=== PATIENT | male | born 1935 | race Caucasian/White ===

== ENCOUNTER 2017-03-22 18:54 | Inpatient (IN) ==
[2017-03-22] MEDS ORDERED: DIPH/TET/ACEL PERT BOOSTER VACCINE 0.5 ML VIAL IM ONE ×2 (20:28→21:00)
--- NOTE | 2017-03-22 20:50 | XRay Report ---
Right foot, 3 views. Indication: Possible osteomyelitis. Surgical clips are noted in the medial aspect of the lower leg. There is an area of ulceration at the great toe. There is loss of cortex at the distal tuft of the great toe suggestive of active osteomyelitis. There are degenerative changes present, severe, at the first metatarsophalangeal joint, and there is a interval but not acute fracture of the base of the third proximal phalanx. There is nonunion. There are prominent erosions at the head of the third and fourth metatarsals. There are posterior and plantar calcaneal spurs. Impression: Bony erosion at the distal tuft of the great toe, consistent with active osteomyelitis. Scattered degenerative changes. Interval nonacute fracture of the third proximal phalanx. PROCEDURE INTERPRETED AT [facility] DEPARTMENT OF RADIOLOGY Final Report Signed by: Dr. Malou Yun
[2017-03-22] MEDS ORDERED: PIPERACILLIN/TAZOBACTAM 3,375 MG in SODIUM CHLORIDE 0.9% 100 ML IV STA (21:12)
[2017-03-22] MEDS ORDERED: VANCOMYCIN INJ 1,000 MG in SODIUM CHLORIDE 0.9% 250 ML IV STA (21:13)
[2017-03-22 21:19] LABS: Apearance,Urine Slightly Hazy (Clear); Bilirubin,Urine Negative (Negative); Blood, Urine Negative (Negative); Glucose,Urine (UA) Negative (Negative); Granular Casts,Urine 5 /LPF (0-1); Hyaline Casts,Urine 27 /LPF (0-3); Ketones,Urine 5 mg/dL (Negative); Mucus,Urine Occasional /LPF (Occasional); Nitrite,Urine Negative (Negative); Protein,Urine Negative; Urine Color Yellow (Yellow); Urine Specific Gravity 1.011 (1.001-1.035); Urine Urobilinogen < 2.0 EU/DL (0.2-1.0); WBC,Urine <1 /HPF (0-6)
[2017-03-22] MEDS ORDERED: PIPERACILLIN/TAZOBACTAM 3,375 MG VIAL IV ONE (21:42)
[2017-03-22 21:43] LABS: Albumin 3.3 G/DL (3.4-5.0); Osmolality,Calculated 277.7 MOS/KG (273-304); Potassium 3.7 MMOL/L (3.5-5.1); Total Protein 7.4 G/DL (6.4-8.3)
[2017-03-22] MEDS ORDERED: SODIUM CHLORIDE 0.9% 100 ML IV ONE (21:43)
--- NOTE | 2017-03-22 21:59 | Emergency Department Note ---
Arrival - Arrival Chief Complaint: Extremity Problem Stated Complaint: pain in feet ED Nursing Triage Note: C/O Wound to great toe and 2nd toe on right foot x 2-3 weeks. Pt denies seeking medical attention until tonight. Unsure of fever at home. Pt reports that he was once told he was a diabetic, but then he was taken off of medications because "it got better" Mode of Arrival: Ambulatory Time Seen by Provider: 03/22/17 19:37 - History of Present Illness HPI Narrative: This is a 81-year-old male of descent with a history of coronary artery disease, hypertension and diabetes which the patient says he no longer takes medication for who presents with increasing pain involving the right first toe. The patient was admitted in 2013 with amputation of the left second toe for osteomyelitis. The patient denies any fever nor chills. Allergies/Adverse Reactions: Allergies Allergy/AdvReac Type Severity Reaction Status Date / Time No Known Allergies Allergy Unverified 03/27/16 22:01 Home Medications: Home Medications Medication Instructions Recorded Confirmed Type Aspirin [Ecotrin] 81 mg PO DAILY 03/27/16 03/22/17 History Atorvastatin [Lipitor] 40 mg PO BEDTIME 03/27/16 03/22/17 History Carvedilol 3.125 mg PO DAILY 03/27/16 03/22/17 History HydrOXYzine PAMOATE CAP [Vistaril 25 mg PO BID 03/27/16 03/22/17 History Cap] Review of System - Review of System Constitutional: Absent: fever, night sweats Eyes: Absent: redness, vision change Head/Ears/Nose/Throat: Absent: epistaxis, nasal drainage Respiratory: Absent: respiratory distress, wheezing Cardiovascular: Absent: dyspnea on exertion, orthopnea Gastrointestinal: Absent: diarrhea, constipation, melena Genitourinary male: Absent: urgency, dysuria Musculoskeletal: Present: other (Pain of the right first toe) Skin: Absent: change in color, change in hair/nails Neurological: Absent: numbness, paresthesias Psychiatric: Absent: anxiety, depression Endocrine: Absent: heat intolerance, polydipsia, polyuria Hematological/Lymphatic: Absent: easy bruising, lymphadenopathy Allergic/Immunologic: Absent: urticaria, itchy eyes Medical,Surgical,& Family Hx - Medical History Cardio: History of: Hypertension Endocrine: History of: Dyslipidemia - Surgical History Cardiac Surgeries: Sugical HX of: Cardiac Surgery (CABG 1999) - Family History Family History: Reports;: Family Hypertension - Social History Smoking Status: Never smoker Frequency of Alcohol Use: None Type of Drug Use: None Exam Vital Signs: Vital Signs Temperature 98.5 F 03/22/17 19:50 Pulse Rate 75 03/22/17 22:43 Respiratory Rate 16 03/22/17 22:43 Blood Pressure 111/72 03/22/17 22:43 O2 Sat by Pulse Oximetry 98 03/22/17 22:43 - General General appearance: alert - Eye Eye exam: Present: PERRL, EOMI - ENT ENT exam: Present: normal exam - Neck Neck exam: Present: normal inspection, full ROM - Chest Chest inspection: Present: normal inspection - Respiratory Respiratory exam: Present: normal lung sounds bilaterally - Cardiovascular Cardiovascular exam: Present: regular rate, normal rhythm - Abdominal Exam Abdominal exam: Present: soft, normal bowel sounds - Extremities Exam Extremities exam: Present: other (Swelling redness tenderness of the right first toe with ulceration.) - Back Exam Back exam: Present: normal inspection, full ROM - Neurological Exam Neurological exam: Present: alert, oriented X3 - Psychiatric Psychiatric exam: Present: normal affect, normal mood - Skin Skin exam: Present: warm, dry Results - Labs CBC & BMP: 03/22/17 20:21 03/22/17 20:54 Disposition Clinical Impression: Diabetic foot, Osteomyelitis
[2017-03-22 22:13] LABS: Basophils % 0.2 % (0.0-0.8); Eosinophils % 0.1 % (0.00-10.9); Hematocrit 42.6 VOL% (42.0-52.0); Hemoglobin 14.5 GM/DL (14.0-18.0); Immature Granulocytes % 0.6 %; Immature Granulocytes Absolute 0.07 #; Lymphocytes # 1.5 10*3/uL (1.4-4.0); Mean Corpuscular Hemoglobin 30 PG (27-34); Mean Corpuscular Volume 87.7 FL (87-102); Mean Platelet Volume 12.3 FL (9.6-12.0); Monocytes # 1.7 10*3/uL (0.11-0.8); Monocytes % 14.4 % (1.7-12.7); Neutrophils # 8.3 10*3/uL (1.4-7.4); Neutrophils % 71.7 % (38.7-73.9); Platelet Count 172 T/CUMM (130-400); Red Blood Count 4.86 MC/CUMM (3.8-5.5); White Blood Count 11.6 T/CUMM (4-12)
[2017-03-22] MEDS ORDERED: VANCOMYCIN 1,000 MG VIAL ONE (22:18)
[2017-03-22] MEDS ORDERED: ACETAMINOPHEN 325 MG TABLET PO PRN (22:59)
[2017-03-22] MEDS ORDERED: ONDANSETRON 4 MG/2 ML VIAL IV PRN (22:59)
[2017-03-23] MEDS ORDERED: GLUCAGON 1 MG VIAL IM PRN (05:51)
[2017-03-23] MEDS ORDERED: DEXTROSE 50% 25 GM/50 ML SYRINGE IV PRN (05:51)
--- NOTE | 2017-03-23 05:58 | Family Practice History&Phys ---
Assessment and Plan (1) Diabetic foot Status: Acute Assessment and plan: 03/23/2017: Hemoglobin A1c will be checked. Surgical consultation will be ordered. Current Visit: Yes (2) Osteomyelitis Status: Acute Assessment and plan: 03/23/2017: Surgical consultation will be sought. Wound culture will be ordered. Current Visit: Yes History of Present Illness Chief complaint: Foot pain History of present illness: Mr. Mahan is a 81 year old male Patient 81-year-old white male presented emergency room with right great toe pain and ulceration. Patient does have a history of diabetes and has had previous amputations. Patient states it started looking infected about 3 weeks ago and he delayed coming to the emergency room until looks like debridement and possible amputation is necessary. Patient states he stopped taking his diabetic medicines because he did not need it but that was his decision and not mine. Patient states she has had a little fever with this but no chills. He denies any trauma to the area and has a large ulceration and necrotic changes on tip of his right great toe. He denies any other problems. I have not seen the patient in the office in some time now. Home Medications Medication Instructions Recorded Confirmed Type Aspirin [Ecotrin] 81 mg PO DAILY 03/27/16 03/22/17 History Atorvastatin [Lipitor] 40 mg PO BEDTIME 03/27/16 03/22/17 History Carvedilol 3.125 mg PO DAILY 03/27/16 03/22/17 History HydrOXYzine PAMOATE CAP [Vistaril 25 mg PO BID 03/27/16 03/22/17 History Cap] Allergies Allergy/AdvReac Type Severity Reaction Status Date / Time No Known Allergies Allergy Unverified 03/27/16 22:01 - Constitutional Constitutional: Present: fever(s). Absent: chills, weakness - EENT Eyes: Absent: blurry vision, loss of vision Ears: Absent: decreased hearing, ear pain Nose, mouth and throat: Absent: nasal congestion, sinus pressure, sore throat - Cardiovascular Cardiovascular: Absent: chest pain at rest, dyspnea on exertion, edema - Respiratory Respiratory: Absent: cough, dyspnea, dyspnea on exertion - Gastrointestinal Gastrointestinal: Absent: abdominal pain, diarrhea, melena, nausea, vomiting - Genitourinary Genitourinary: Absent: dysuria, urinary frequency - Musculoskeletal Musculoskeletal: Present: as per HPI - Neurological Neurological: Absent: confusion, focal weakness, numbness, paresthesias - Psychiatric Psychiatric: Absent: anxiety, confusion - Endocrine Endocrine: Absent: fatigue, polydipsia, polyphagia - Hematologic/Lymphatic Hematologic/Lymphatic: Absent: easy bleeding, easy bruising Medical,Surgical,& Family Hx - Medical History Cardio: History of: Hypertension Endocrine: History of: Diabetes Mellitus (NIDDM), Dyslipidemia - Surgical History Cardiac Surgeries: Sugical HX of: Cardiac Surgery (CABG 1999) HEENT Surgeries: Surgical HX of: Eye Surgery (cataract removal) - Family History Family History: Reports;: Family Hypertension - Social History Smoking Status: Never smoker Frequency of Alcohol Use: None Type of Drug Use: None Exam - Constitutional Vitals: Period Temp Pulse Resp BP Sys/Silverio Pulse Ox Last 24 Hr 97.3 F-98.5 F 64-84 16-20 111-149/68-82 97-100 Exam: General: Objective patient is a well-developed white male in no acute distress. Patient is able give good history. HEENT: Pupils equal and reactive to light. Patent nares and airway Neck: No meningismus, adenopathy, thyromegaly. There are no auscultated carotid bruits. Cardiovascular: Regular rhythm. No murmurs or gallops Chest: Clear to auscultation without rales rhonchi wheezes. Abdomen: Soft nontender to palpation No masses, rebound, guarding or tenderness. Neuro: Cranial nerves intact and DTRs and strength symmetric in all extremities. Dermatologic: Patient has ulceration and necrosis of the tip of his right great toe. He also has ulceration to the plantar surface of the left foot. He has had previous toe amputations on the left foot. Musculoskeletal: There is no joint swelling or tenderness or deformity. Extremities: No calf swelling or tenderness. Results - Labs CBC & BMP: 03/22/17 20:21 03/22/17 20:54 Lab Results: I have reviewed the past 24 hour labs - Diagnostic Findings Procedure: X-ray: report reviewed by me (Questionable changes of osteomyelitis to the distal phalanx of the right great toe.) Quality Measures - VTE Contraindication to Pharmacological VTE Prophylaxis: High Risk of Bleeding
[2017-03-23] MEDS: INSULIN LISPRO 100 UNIT/ML SUBCUT SCH ×4 (08:26→20:34)
[2017-03-23] MEDS: CEFTAROLINE 400 MG in SODIUM CHLORIDE 0.9% 100 ML IV SCH ×2 (08:27→22:21)
[2017-03-23] MEDS: PANTOPRAZOLE 40 MG TABLET PO SCH (08:27)
[2017-03-23] MEDS: DOCUSATE SODIUM 100 MG CAPSULE PO SCH ×2 (08:27→20:34)
--- NOTE | 2017-03-23 08:46 | General Surgery Consult Note ---
Assessment and Plan - Time spent with patient Time spent with patient: Less than 30 minutes (1) Diabetic foot Status: Acute Assessment and plan: Impression: Diabetic foot ulcer right great toe with ischemic changes Plan: Surgical debridement possible partial amputation Agree with present antibiotics. We will check some vascular studies to be sure that we have pretty good circulatory status. Current Visit: Yes (2) Osteomyelitis Status: Acute Assessment and plan: Impression: Possible osteomyelitis of the right great toe. Plan: Debridement and cultures. Current Visit: Yes Qualifiers: Osteomyelitis location: foot Laterality: right (3) Diabetes mellitus, insulin dependent (IDDM), controlled Status: Acute Assessment and plan: Impression: Diabetes mellitus under pretty good control at this time do not know what can control he has outside the hospital. Plan: Medical management A1c pending Current Visit: Yes (4) History of heart surgery Status: Acute Assessment and plan: Impression: History of cardiac surgery Current Visit: Yes History of Present Illness Chief complaint: Painful ulceration of the right great toe with ischemic change History of present illness: Mr. Mahan is a 81 year old male white diabetic who we were asked to see because of necrotic ulceration of the right great toe with some cellulitis. Onset of changes in that toe was about 3 weeks ago but he did not seek help until he came to emergency room was found to have almost 2/3 of the great toe with ischemic tissue present questionable osteo-on these x-rays plain films of the toe. He seems to have pretty good pulses dorsalis pedis on that right foot but will get some vascular studies can understand what we are dealing with. He will need debridement which will probably result in at least partial amputation of that toe or to get this process under control. May initially need to leave the wound open for drainage and wound care until we can come back and close at another date. Also found that he has got ulcerations on the left foot that need to be debrided and cleaned up also with some consistent care in order to try to get this process under control. When I had seen the patient had already had breakfast so we will set him up for surgery tomorrow. Home Medications Medication Instructions Recorded Confirmed Type Aspirin [Ecotrin] 81 mg PO DAILY 03/27/16 03/22/17 History Atorvastatin [Lipitor] 40 mg PO BEDTIME 03/27/16 03/22/17 History Carvedilol 3.125 mg PO DAILY 03/27/16 03/22/17 History HydrOXYzine PAMOATE CAP [Vistaril 25 mg PO BID 03/27/16 03/22/17 History Cap] Allergies Allergy/AdvReac Type Severity Reaction Status Date / Time No Known Allergies Allergy Unverified 03/27/16 22:01 Medical,Surgical,& Family Hx - Medical History Cardio: History of: Hypertension Endocrine: History of: Diabetes Mellitus (NIDDM), Dyslipidemia - Surgical History Cardiac Surgeries: Sugical HX of: Cardiac Surgery (CABG 1999) HEENT Surgeries: Surgical HX of: Eye Surgery (cataract removal) - Family History Family History: Reports;: Family Hypertension - Social History Smoking Status: Never smoker Frequency of Alcohol Use: None Type of Drug Use: None 12 point system: reviewed and no additional remarkable complaints except as stated Exam - Constitutional Vitals: Period Temp Pulse Resp BP Sys/Silverio Pulse Ox Last 24 Hr 97.3 F-98.5 F 63-84 16-20 111-149/68-82 96-100 General appearance: mild distress - Head Head exam: Present: normal inspection - ENT ENT exam: Present: normal exam Mouth exam: Present: normal external inspection - Neck Neck exam: Present: normal inspection - Respiratory Respiratory exam: Present: clear to auscultation bilaterally, rales - Cardiovascular Cardiovascular exam: Present: RRR - GI/Abdominal GI/Abdominal exam: Present: normal bowel sounds, soft - Extremities Exam Extremities exam: Present: other (The right foot has a toe with extensive ischemic changes of the distal two thirds of the toe with some erythematous changes on the dorsum of the foot. There is a 2+ dorsalis palpable pulse in the foot at this time. The left foot has a ulcer on the plantar surface and the metatarsal head area that is dark and black thickened callus around it and do not know the extensiveness of it at this point.). Absent: edema - Back Exam Back exam: Present: normal inspection - Neurological Exam Neurological exam: Present: alert, oriented X3, CN II-XII intact - Skin Skin exam: Present: normal color, warm, dry Quality Measures - VTE Contraindication to Pharmacological VTE Prophylaxis: Clinical assessment deems Pt at low risk, no prophalaxis needed Contraindication to Mechanical VTE Prophylaxis: Local Inflammation Results - Labs CBC & BMP: 03/22/17 20:21 03/22/17 20:54 Lab Results: I have reviewed the past 24 hour labs
[2017-03-23] MEDS: ENOXAPARIN 40 MG/0.4 ML SYRINGE SUBCUT SCH (09:55)
[2017-03-23] MEDS: PENTOXIFYLLINE 400 MG TABLET PO SCH ×3 (09:55→20:34)
[2017-03-23] MEDS: SKIN HEALING OINT (AQUAPHOR) 50 GM TUBE TOP SCH (09:55)
[2017-03-23] MEDS: BACITRACIN OINT 0.9 GM PACK TOP SCH (09:55)
--- NOTE | 2017-03-23 10:49 | EKG Report ---
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
--- NOTE | 2017-03-23 12:21 | XRay Report ---
Exam: XR chest 2V Indication: Preop Comparison study: 04/20/2014 Findings: The heart, mediastinum and bony structures are stable from prior. Median sternotomy wiring is noted. Right-sided PICC line has been removed. There is improved aeration within the lung bases. There is no focal consolidation, pneumothorax or pleural effusion identified. Impression: No acute cardiopulmonary process. Improved aeration within the lung bases. PROCEDURE INTERPRETED AT [facility] DEPARTMENT OF RADIOLOGY Final Report Signed by: Adolfo Flores
[2017-03-23] MEDS: CARVEDILOL 3.125 MG TABLET PO SCH ×2 (16:32→20:34)
[2017-03-23] MEDS: amLODIPine 2.5 MG TABLET PO SCH (16:32)
[2017-03-24 05:59] LABS: Basophils % 0.2 % (0.0-0.8); Eosinophils # 0.2 10*3/uL (0.0-0.87); Eosinophils % 2.2 % (0.00-10.9); Hematocrit 41.3 VOL% (42.0-52.0); Hemoglobin 13.9 GM/DL (14.0-18.0); Immature Granulocytes % 0.6 %; Immature Granulocytes Absolute 0.06 #; Lymphocytes # 1.5 10*3/uL (1.4-4.0); Lymphocytes % 15.2 % (21.2-54.2); Mean Corpuscular HGB Conc 33.7 GM/DL (32-36); Mean Corpuscular Hemoglobin 29 PG (27-34); Mean Corpuscular Volume 87.1 FL (87-102); Monocytes # 1.3 10*3/uL (0.11-0.8); Monocytes % 13.5 % (1.7-12.7); Neutrophils # 6.7 10*3/uL (1.4-7.4); Neutrophils % 68.3 % (38.7-73.9); Platelet Count 164 T/CUMM (130-400); Red Blood Count 4.74 MC/CUMM (3.8-5.5); Red Cell Distribution Width 12.8 % (9.3-17.3); White Blood Count 9.8 T/CUMM (4-12)
[2017-03-24 06:42] LABS: Calcium 8.6 MG/DL (8.5-10.1); Magnesium 2.2 MG/DL (1.8-2.4); Osmolality,Calculated 281.3 MOS/KG (273-304); Potassium 3.8 MMOL/L (3.5-5.1)
[2017-03-24] MEDS ORDERED: ceFAZolin 2,000 MG in SODIUM CHLORIDE 0.9% 100 ML IV ONE (07:00)
[2017-03-24] MEDS ORDERED: BUPIVACAINE 0.25% 50 ML VIAL ONE (07:22)
[2017-03-24] MEDS: INSULIN LISPRO 100 UNIT/ML SUBCUT SCH ×4 (07:49→21:33)
[2017-03-24] MEDS ORDERED: MUPIROCIN 2% OINT 22 GM TUBE TOP ONE (07:53)
[2017-03-24] MEDS ORDERED: CHLORHEXIDINE 4% SOLN 118 ML BOTTLE TOP ONE (08:05)
--- NOTE | 2017-03-24 08:18 | Operative Note ---
Date of procedure: 03/24/17 Pre-op diagnosis: Diabetic ulceration right great toe with osteomyelitis/ulcer left foot Post-op diagnosis: same Procedure: Operative note: Preoperative diagnosis: 1. Diabetic ulceration right great toe with ischemic changes and underlying osteomyelitis 2. Diabetic ulceration plantar surface left foot fourth metatarsal head 3. Callus first metatarsal head medial left foot Postoperative diagnosis: Same Procedure: 1. Distal amputation of the phalanges of the right great toe with extensive debridement of the distal first toe ulcer 2. Debridement of ulcer plantar surface left foot fourth metatarsal 3. Debridement of callus medial aspect first metatarsal head left foot Surgeon Dr. Jenkins Anesthesia general Brief history: 81-year-old diabetic male comes in with ischemic changes of the distal part of his right great toe with swelling and underlying x-rays of osteomyelitis. Needed debridement and better culturing of this know what we are dealing with at this time. He also has a another ulcer on the left foot plantar surface area that needs some debridement because a thick callus is present over this ulcer she cannot really see what we are dealing with. Procedure: With patient prepped and draped in sterile fashion timeout and antibiotics completed we approach this area the wounds themselves. Their distal part of the first toe is a large callus over it is difficult to really measure and tell exactly how extensive the necrotic tissue is at this time. The left foot ulcer on the plantar surface at the fourth metatarsal area with thick callus measures 2 x 1.5 cm x 0 cm. The left foot and undersurface callus first metatarsal head measures 1 x 1 cm x 0 cm. At that point I went ahead over to the right first toe. At that point time I took scissors and to begin to remove the thick callus over the distal part of this wound. There is some purulent drainage we then cultured with swabs at this time. At that point I can get little better look at what we are dealing with and there is a ulcer on the very tip of the toe at this point with necrotic tissue around the edges of it at this time. I took a knife and ellipsed this necrotic tissue around the toe completely out at this time to remove that including the mid nailbed that was present at this time. I then dissected down into this area around the bone where there was clearly exposed bone with osteomyelitis in it at this time. The spongy and easily audible. I took a piece of the distal part of the bone for cultures at this time. I then used periosteal elevators and get down to the joint tourniquet disarticulate the distal phalanges of this toe. Once it was removed I took the rondure removed additional necrotic bone from the medial edge as well as some deep tendinous material. I then debrided the cartilage away from the end of the bone at this time to get a good clean base at this time. I then took a knife and debride a little more the posterior flap area just clean this age up in order to get this is clean as I could possibly get it. Once that was done we now have a wound that is 2.5 x 2 x 1 cm in size. I washed irrigated and cleaned this out this time. I removed little bit of callus from the second toe that may have a small little ulcer there but I do not think is insignificant at this point. With that completed then we were able to dress this is bacitracin Xeroform fluffs heel pad and wrapped with cast padding Covan to the knee. Next moved to the left foot where there is an ulcer at the plantar surface at this time. Pre-debridement the ulcer has a thick callus since 2 x 1.5 x 0 cm in size. At that point time I took a knife begin to shave that callus down and away encountering an ulcer underneath the wound is not as big as the actual callused area. I debrided all this callus down to this ulcer that has a good smooth flat granulating beds at this time. No infection or drainage was noted. Once I had finished and now have an ulcer on this area with the callus gone that is only 1 x 1 x 0.1 cm in size. With that completed in this little callused area on the medial aspect first metatarsal head of this left foot took a knife to debride that callus down finding no ulcer underneath it at this time. With that I then worked up this leg placed some bacitracin ointment Xeroform and fluffs on to this ulcer and then wrapped the leg up with cast padding Covan to the knee. Patient was then taken to recovery room in Estimated blood loss was 10-15 cc Sponge count correct 2 Drains none Complications none Condition stable satisfactory Anesthesia: ANGELA Surgeon / Physician: Rd Jenkins Estimated blood loss: other (10 cc) Specimens: other (Tissue and swabs and bone for culture and path) Condition: stable Disposition: floor Results - Labs CBC & BMP: 03/24/17 05:39 03/24/17 05:39 Discharge Plan - Discharge Medications No Action HydrOXYzine PAMOATE CAP [Vistaril Cap] 25 mg PO BID Atorvastatin [Lipitor] 40 mg PO BEDTIME Carvedilol 3.125 mg PO DAILY Aspirin [Ecotrin] 81 mg PO DAILY - Follow Up or Referral - Forms/Instructions
[2017-03-24] MEDS ORDERED: HYDROmorphone 2 MG/1 ML VIAL IV PRN (08:27)
[2017-03-24] MEDS ORDERED: ONDANSETRON 4 MG/2 ML VIAL IV PRN (08:27)
[2017-03-24] MEDS ORDERED: hydrALAZINE 20 MG/1 ML VIAL IM ONE (08:28)
[2017-03-24] MEDS ORDERED: LACTATED RINGERS 1,000 ML IV SCH (08:30)
[2017-03-24] MEDS: ASPIRIN EC 81 MG TABLET PO SCH (09:11)
[2017-03-24] MEDS: DOCUSATE SODIUM 100 MG CAPSULE PO SCH ×2 (09:12→21:27)
[2017-03-24] MEDS: CARVEDILOL 3.125 MG TABLET PO SCH ×3 (09:12→21:27)
[2017-03-24] MEDS: HydrOXYzine PAMOATE 25 MG CAPSULE PO SCH ×2 (09:12→21:27)
[2017-03-24] MEDS: amLODIPine 2.5 MG TABLET PO SCH (09:12)
[2017-03-24] MEDS: ENOXAPARIN 40 MG/0.4 ML SYRINGE SUBCUT SCH ×2 (09:12→09:28)
[2017-03-24] MEDS: PENTOXIFYLLINE 400 MG TABLET PO SCH ×3 (09:12→21:27)
[2017-03-24] MEDS: PANTOPRAZOLE 40 MG TABLET PO SCH (09:12)
--- NOTE | 2017-03-24 09:22 | Family Practice Progress Note ---
Family Practice - PN: Subj Interval history: PCP: Dr. Yan Consultants on case : Surgery, pt admitted for diabetic foot, osteomyelitis, status post surgery this a.m. Has h/o DM, HTN , hyperlipidemia pt seen and examined on 2 East floor, Accompanied by sister at bedside. Is postoperative, debridement of the ulcers/callus, right great toe/amputation phalanx of right great toe lying in bed, is hard of hearing No complaints of pain, fever , nausea, vomiting , chest pain , SOB , headaches or dizziness, No overnight events reported by the nurse, Exam (Progress Note) - Constitutional Vitals: Period Temp Pulse Resp BP Sys/Silverio Pulse Ox Last 24 Hr 97.4 F-98.7 F 50-74 16-21 122-198/52-119 62-99 Exam: Examination: GENERAL: Alert, oriented, in no acute distress , elderly male pt, Lying in the bed, HEENT: Decreased hearing,PERRLA. EOMI. Mucous membranes are moist. NECK: Neck is supple. No JVD. No carotid bruit. No thyromegaly. CVS: Regular rate and rhythm. S1 and S2 are normal. RESPIRATORY: Clear to ausculation bilaterally , No wheezes, rales or rhonchi. ABDOMEN: Soft and nontender. Bowel sounds are present. No hepatosplenomegaly. EXT: Has postoperative testing at bilateral feet/legs. No swelling/edema noted of the knee and upper legs bilaterally. BIRD RAISER: Patient is awake, alert and oriented, Cranial nerves 2-12 grossly intact. Results - Labs CBC & BMP: 03/24/17 05:39 03/24/17 05:39 Lab Results: I have reviewed the past 24 hour labs - Diagnostic Findings Procedure: Chest x-ray: report reviewed by me, image reviewed by me, X-ray: report reviewed by me, image reviewed by me Assessment and Plan (1) Osteomyelitis Status: Acute Assessment and plan: Status post debridement, right great toe distal phalanges of amputation day 0, continue IV antibiotics, pain meds, blood cultures/wound culture reports noted. Continue surgery recommendations 2. DM , stable , continue current regimen \3..HTN , stable, continue current antihypertensives, 4. Dyslipidemia, continue Lipitor Current Visit: Yes Qualifiers: Osteomyelitis location: foot Laterality: right (2) Diabetic foot Status: Acute Current Visit: Yes (3) Diabetes mellitus, insulin dependent (IDDM), controlled Status: Chronic Current Visit: Yes (4) Essential hypertension Status: Chronic Current Visit: Yes (5) Dyslipidemia Status: Chronic Current Visit: Yes Quality Measures - VTE Contraindication to Pharmacological VTE Prophylaxis: Clinical assessment deems Pt at low risk, no prophalaxis needed
[2017-03-24] MEDS: CEFTAROLINE 400 MG in SODIUM CHLORIDE 0.9% 100 ML IV SCH ×2 (10:08→21:33)
[2017-03-24] MEDS: SODIUM CHLORIDE 0.45% 1,000 ML IV SCH ×2 (10:08→22:14)
[2017-03-24] MEDS: SODIUM HYPOCHLORITE 0.25% IRRIG 473 ML BOTTLE TOP SCH (11:06)
[2017-03-24] MEDS: SKIN HEALING OINT (AQUAPHOR) 50 GM TUBE TOP SCH (11:06)
[2017-03-24] MEDS: BACITRACIN OINT 0.9 GM PACK TOP SCH (11:06)
[2017-03-24] MEDS ORDERED: ePHEDrine 50 MG/ML AMP ONE (12:44)
--- NOTE | 2017-03-24 12:50 | Anesthesia Post-Op ---
Anesthesia Post OP - Post Ansesthetic Evaluation Patient seen in post op: Yes Resp: within normal limits CV: within normal limits Mental: within normal limits Temp: within normal limits [id number]: within normal limits Nausea and Vomiting: within normal limits Pain: within normal limits
[2017-03-24] MEDS ORDERED: ACETAMINOPHEN 1,000 MG/100 ML VIAL IV ONE (12:57)
[2017-03-24] MEDS ORDERED: ONDANSETRON 4 MG/2 ML VIAL ONE (12:57)
[2017-03-24] MEDS ORDERED: PROPOFOL 200 MG/20 ML VIAL IV ONE (12:57)
[2017-03-24] MEDS ORDERED: LACTATED RINGERS 1,000 ML IV ONE (12:57)
[2017-03-24] MEDS ORDERED: SEVOFLURANE 1 UNIT/15 MINUTE INH ONE (12:57)
[2017-03-24] MEDS: HYDROmorphone 2 MG/1 ML VIAL IV PRN (15:30)
[2017-03-24] MEDS: ceFAZolin 2,000 MG in PREMIX 1 EACH IV SCH ×2 (15:35→22:14)
[2017-03-24] MEDS: ATORVASTATIN 40 MG TABLET PO SCH (21:27)
[2017-03-25 05:38] LABS: Basophils % 0.2 % (0.0-0.8); Eosinophils # 0.3 10*3/uL (0.0-0.87); Eosinophils % 4.8 % (0.00-10.9); Hematocrit 37.2 VOL% (42.0-52.0); Hemoglobin 12.7 GM/DL (14.0-18.0); Immature Granulocytes % 0.3 %; Immature Granulocytes Absolute 0.02 #; Lymphocytes # 1.6 10*3/uL (1.4-4.0); Lymphocytes % 26.9 % (21.2-54.2); Mean Corpuscular HGB Conc 34.1 GM/DL (32-36); Mean Corpuscular Hemoglobin 30 PG (27-34); Mean Corpuscular Volume 87.3 FL (87-102); Mean Platelet Volume 12.3 FL (9.6-12.0); Monocytes # 0.7 10*3/uL (0.11-0.8); Monocytes % 11.1 % (1.7-12.7); Neutrophils # 3.4 10*3/uL (1.4-7.4); Neutrophils % 56.7 % (38.7-73.9); Platelet Count 153 T/CUMM (130-400); Red Blood Count 4.26 MC/CUMM (3.8-5.5); Red Cell Distribution Width 13.2 % (9.3-17.3); White Blood Count 6.1 T/CUMM (4-12)
[2017-03-25 06:17] LABS: Calcium 8.6 MG/DL (8.5-10.1); Osmolality,Calculated 287.7 MOS/KG (273-304); Potassium 3.6 MMOL/L (3.5-5.1)
[2017-03-25] MEDS: CEFTAROLINE 400 MG in SODIUM CHLORIDE 0.9% 100 ML IV SCH ×2 (08:47→21:53)
--- NOTE | 2017-03-25 08:48 | Family Practice Progress Note ---
Family Practice - PN: Subj Interval history: PCP: Dr. Yan [facility] on case : Surgery, pt admitted for diabetic foot, osteomyelitis, status post surgery,debridement of the ulcers/callus, right great toe/amputation phalanx of right great toe Has h/o DM, HTN , hyperlipidemia pt seen and examined on 2 East floor, Accompanied by sister at bedside. lying in bed, is hard of hearing No complaints of pain, fever , nausea, vomiting , chest pain , SOB , headaches or dizziness, No overnight events reported by the nurse, Exam (Progress Note) - Constitutional Vitals: Period Temp Pulse Resp BP Sys/Silverio Pulse Ox Last 24 Hr 96.7 F-98.7 F 50-85 18-20 123-164/53-113 93-98 Exam: Examination: GENERAL: Alert, oriented, in no acute distress , elderly male pt, Lying in the bed, HEENT: Decreased hearing,PERRLA. EOMI. Mucous membranes are moist. NECK: Neck is supple. No JVD. No carotid bruit. No thyromegaly. CVS: Regular rate and rhythm. S1 and S2 are normal. RESPIRATORY: Clear to ausculation bilaterally , No wheezes, rales or rhonchi. ABDOMEN: Soft and nontender. Bowel sounds are present. No hepatosplenomegaly. EXT: Has postoperative DRESSING at bilateral feet/legs. No swelling/edema noted of the knee and upper legs bilaterally. NYLON OPERATOR: Patient is awake, alert and oriented, Cranial nerves 2-12 grossly intact. Results - Labs CBC & BMP: 03/25/17 05:05 03/25/17 05:05 Lab Results: I have reviewed the past 24 hour labs Assessment and Plan (1) Osteomyelitis Status: Acute Assessment and plan: Status post debridement, right great toe distal phalanges of amputation day 1, continue IV antibiotics, pain meds, blood cultures/wound culture reports noted. Continue surgery recommendations 2. DM , stable , continue current regimen \3..HTN , stable, continue current antihypertensives, 4. Dyslipidemia, continue Lipitor. 5. account services analyst consult done for possible placement of swing bed, when ready for discharge. Current Visit: Yes Qualifiers: Osteomyelitis location: foot Laterality: right (2) Diabetic foot Status: Acute Current Visit: Yes (3) Diabetes mellitus, insulin dependent (IDDM), controlled Status: Chronic Current Visit: Yes (4) Essential hypertension Status: Chronic Current Visit: Yes (5) Dyslipidemia Status: Chronic Current Visit: Yes Quality Measures - VTE Contraindication to Pharmacological VTE Prophylaxis: Clinical assessment deems Pt at low risk, no prophalaxis needed
[2017-03-25] MEDS: PENTOXIFYLLINE 400 MG TABLET PO SCH ×3 (08:50→20:49)
[2017-03-25] MEDS: CARVEDILOL 3.125 MG TABLET PO SCH ×3 (08:50→20:49)
[2017-03-25] MEDS: DOCUSATE SODIUM 100 MG CAPSULE PO SCH ×2 (08:50→20:49)
[2017-03-25] MEDS: amLODIPine 2.5 MG TABLET PO SCH (08:51)
[2017-03-25] MEDS: HydrOXYzine PAMOATE 25 MG CAPSULE PO SCH ×2 (08:54→20:49)
[2017-03-25] MEDS: PANTOPRAZOLE 40 MG TABLET PO SCH (08:54)
[2017-03-25] MEDS: ASPIRIN EC 81 MG TABLET PO SCH (08:55)
[2017-03-25] MEDS: INSULIN LISPRO 100 UNIT/ML SUBCUT SCH ×4 (09:44→21:10)
[2017-03-25] MEDS: ENOXAPARIN 40 MG/0.4 ML SYRINGE SUBCUT SCH (09:45)
[2017-03-25] MEDS: BACITRACIN OINT 0.9 GM PACK TOP SCH (09:59)
[2017-03-25] MEDS: SKIN HEALING OINT (AQUAPHOR) 50 GM TUBE TOP SCH (09:59)
[2017-03-25] MEDS: SODIUM HYPOCHLORITE 0.25% IRRIG 473 ML BOTTLE TOP SCH (10:00)
[2017-03-25] MEDS: POLYETHYLENE GLYCOL POWDER 17 GM PACK PO PRN (11:31)
[2017-03-25] MEDS: SODIUM CHLORIDE 0.45% 1,000 ML IV SCH (12:25)
[2017-03-25] MEDS: HYDROmorphone 2 MG/1 ML VIAL IV PRN (14:46)
[2017-03-25] MEDS: hydrALAZINE 20 MG/1 ML VIAL IV PRN (17:24)
[2017-03-25] MEDS: ATORVASTATIN 40 MG TABLET PO SCH (20:49)
[2017-03-26] MEDS: SODIUM CHLORIDE 0.45% 1,000 ML IV SCH ×2 (00:55→15:57)
[2017-03-26] MEDS: hydrALAZINE 20 MG/1 ML VIAL IV PRN ×2 (04:57→15:58)
[2017-03-26 06:21] LABS: Basophils % 0.1 % (0.0-0.8); Eosinophils # 0.5 10*3/uL (0.0-0.87); Eosinophils % 6.3 % (0.00-10.9); Hematocrit 36.8 VOL% (42.0-52.0); Hemoglobin 12.6 GM/DL (14.0-18.0); Immature Granulocytes % 0.4 %; Immature Granulocytes Absolute 0.03 #; Lymphocytes # 1.6 10*3/uL (1.4-4.0); Lymphocytes % 23.1 % (21.2-54.2); Mean Corpuscular HGB Conc 34.2 GM/DL (32-36); Mean Corpuscular Hemoglobin 30 PG (27-34); Mean Corpuscular Volume 87.8 FL (87-102); Mean Platelet Volume 12.1 FL (9.6-12.0); Monocytes # 0.7 10*3/uL (0.11-0.8); Monocytes % 9.6 % (1.7-12.7); Neutrophils # 4.3 10*3/uL (1.4-7.4); Neutrophils % 60.5 % (38.7-73.9); Platelet Count 161 T/CUMM (130-400); Red Blood Count 4.19 MC/CUMM (3.8-5.5); Red Cell Distribution Width 13.2 % (9.3-17.3); White Blood Count 7.1 T/CUMM (4-12)
[2017-03-26 06:52] LABS: Calcium 8.4 MG/DL (8.5-10.1); Magnesium 1.9 MG/DL (1.8-2.4); Osmolality,Calculated 283.8 MOS/KG (273-304); Potassium 3.7 MMOL/L (3.5-5.1)
--- NOTE | 2017-03-26 07:04 | Family Practice Progress Note ---
Family Practice - PN: Subj Interval history: Patient states his foot may be feeling a little bit better. He has a polymicrobial wound infection including MSSA, Streptococcus agalactiae And Morganella morganii. These are sensitive to Levaquin and should be sensitive to the throat as well. He can certainly be discharged with Levaquin when that time comes. I think be best for him to go to a swing bed or to [facility] for ongoing wound care. He does not have any fever or chills. His white blood count has improved. Exam (Progress Note) - Constitutional Vitals: Period Temp Pulse Resp BP Sys/Silverio Pulse Ox Last 24 Hr 96.5 F-98.7 F 53-72 17-22 109-182/48-90 95-98 Exam: Objective well-developed gentleman in no acute distress. His sisters in the room with him. He states she is not have any problems but his feet are still hurting him. He has a large ulceration on some of the left foot and has lost the tip of his right great toe. Cardiovascular: Heart rate is regular without murmurs Respiratory: Lungs clear to auscultation bilaterally. Abdomen: Abdomen soft and nontender to palpation. Extremities: Both lower extremities are bandaged with compression bandages. Results - Labs CBC & BMP: 03/26/17 05:34 03/26/17 05:34 Lab Results: I have reviewed the past 24 hour labs Assessment and Plan (1) Diabetic foot Status: Acute Assessment and plan: 03/23/2017: Hemoglobin A1c will be checked. Surgical consultation will be ordered. 03/26/2017: Patient's had debridement of both feet by Dr. Jenkins. Patient will require ongoing wound care and I will see if he is a candidate for [facility] or swing bed. Current Visit: Yes (2) Osteomyelitis Status: Acute Assessment and plan: 03/23/2017: Surgical consultation will be sought. Wound culture will be ordered. Current Visit: Yes Qualifiers: Osteomyelitis location: foot Laterality: right Quality Measures - VTE Contraindication to Pharmacological VTE Prophylaxis: Clinical assessment deems Pt at low risk, no prophalaxis needed
[2017-03-26] MEDS: INSULIN LISPRO 100 UNIT/ML SUBCUT SCH ×4 (08:40→21:01)
[2017-03-26] MEDS: CARVEDILOL 3.125 MG TABLET PO SCH ×2 (09:25→20:58)
[2017-03-26] MEDS: ASPIRIN EC 81 MG TABLET PO SCH (09:25)
[2017-03-26] MEDS: HydrOXYzine PAMOATE 25 MG CAPSULE PO SCH ×2 (09:25→20:58)
[2017-03-26] MEDS: ENOXAPARIN 40 MG/0.4 ML SYRINGE SUBCUT SCH (09:25)
[2017-03-26] MEDS: oxyCODONE/ACETAMINOPHEN 5-325 MG TABLET PO PRN (09:25)
[2017-03-26] MEDS: SODIUM HYPOCHLORITE 0.25% IRRIG 473 ML BOTTLE TOP SCH (09:26)
[2017-03-26] MEDS: amLODIPine 2.5 MG TABLET PO SCH (09:26)
[2017-03-26] MEDS: DOCUSATE SODIUM 100 MG CAPSULE PO SCH ×2 (09:26→20:58)
[2017-03-26] MEDS: SKIN HEALING OINT (AQUAPHOR) 50 GM TUBE TOP SCH (09:26)
[2017-03-26] MEDS: BACITRACIN OINT 0.9 GM PACK TOP SCH (09:26)
[2017-03-26] MEDS: PENTOXIFYLLINE 400 MG TABLET PO SCH ×3 (09:26→20:58)
[2017-03-26] MEDS: PANTOPRAZOLE 40 MG TABLET PO SCH (09:26)
--- NOTE | 2017-03-26 10:02 | General Surgery Progress Note ---
Assessment and Plan - Time spent with patient Time spent with patient: Less than 30 minutes (1) Diabetic foot Status: Acute Assessment and plan: Impression: Diabetic foot ulcer right great toe with ischemic changes Plan: Surgical debridement possible partial amputation Agree with present antibiotics. We will check some vascular studies to be sure that we have pretty good circulatory status. 03/26/2017. Patient generally is doing fairly well at this point time. The ulcer of his left foot looks good and is fairly superficial and should respond nicely if we can keep pressure off of it. The wound of the right great toe is clean there is no necrotic tissue seen or further drainage noted at this point. A looks to thickened at this point time to consider that would be able to get it closed so it is likely just have to continue present wound care at this point. He does have his shoes for walking which gave him some protection to the foot at this time. He continued care to the toe at this time while we are waiting on the finals of his cultures. Cannot really say what the best antibiotics would be formed until we see these final cultures. Current Visit: Yes (2) Osteomyelitis Status: Acute Assessment and plan: Impression: Possible osteomyelitis of the right great toe. Plan: Debridement and cultures. Current Visit: Yes Qualifiers: Osteomyelitis location: foot Laterality: right (3) Diabetes mellitus, insulin dependent (IDDM), controlled Status: Chronic Assessment and plan: Impression: Diabetes mellitus under pretty good control at this time do not know what can control he has outside the hospital. Plan: Medical management A1c pending Current Visit: Yes (4) History of heart surgery Status: Acute Assessment and plan: Impression: History of cardiac surgery Current Visit: Yes Subjective Patient reports: Present: no new complaints, tolerating a regular diet, afebrile Exam - Constitutional Vitals: Period Temp Pulse Resp BP Sys/Silverio Pulse Ox Last 24 Hr 96.5 F-98.7 F 53-72 17-22 109-191/48-90 92-98 General appearance: mild distress - Head Head exam: Present: normal inspection - ENT ENT exam: Present: normal exam - Neck Neck exam: Present: normal inspection - Respiratory Respiratory exam: Present: rales - Cardiovascular Cardiovascular exam: Present: RRR - GI/Abdominal GI/Abdominal exam: Present: hypoactive bowel sounds, soft - Extremities Exam Extremities exam: Present: other (The ulcer of the left foot is clean and very superficial but just needs continued care to get it healed. The wound of the right first toe is clean I do not see any further drainage or our obvious signs of infection or skin loss.) - Back Exam Back exam: Present: normal inspection - Neurological Exam Neurological exam: Present: alert, oriented X3, CN II-XII intact - Skin Skin exam: Present: normal color, warm, dry Results - Labs CBC & BMP: 03/26/17 05:34 03/26/17 05:34 Lab Results: I have reviewed the past 24 hour labs Quality Measures - VTE Contraindication to Pharmacological VTE Prophylaxis: Clinical assessment deems Pt at low risk, no prophalaxis needed
[2017-03-26] MEDS: CEFTAROLINE 600 MG in SODIUM CHLORIDE 0.9% 50 ML IV SCH ×2 (10:24→20:58)
--- NOTE | 2017-03-26 12:54 | Case Mgmt Physician Query Form ---
TB Signs and Symptoms Screening ([place]) INSTRUCTIONS: To be completed annually on residents/staff with a significant Tuberculin Skin Test (TST) upon admission/hire or a prior significant TST. To be completed on all staff at hire. Please respond to each listed symptom with an (X) in either the "YES" or "NO" box. Do you currently have any of the following symptoms: YES NO ( ) ( ) A cough If yes, is it: ( ) Productive ( ) Non- productive ( ) ( ) Hemoptysis (spitting up blood) ( ) ( ) Chest pains ( ) ( ) Weight Loss ( ) ( ) Fever ( ) ( ) Night Sweats ( ) ( ) Weakness ( ) ( ) Loss of Appetite ( ) ( ) Difficulty Breathing If you answered YES" to any of the above questions, how long have symptoms been present? Comments: not my patient belongs to [facility]
[2017-03-26] MEDS: HYDROmorphone 2 MG/1 ML VIAL IV PRN ×2 (15:57→18:19)
[2017-03-26] MEDS: ATORVASTATIN 40 MG TABLET PO SCH (20:58)
[2017-03-27] MEDS: SODIUM CHLORIDE 0.45% 1,000 ML IV SCH ×2 (05:20→19:32)
[2017-03-27] MEDS: hydrALAZINE 20 MG/1 ML VIAL IV PRN (05:28)
[2017-03-27] MEDS: oxyCODONE/ACETAMINOPHEN 5-325 MG TABLET PO PRN (06:40)
--- NOTE | 2017-03-27 06:54 | Family Practice Progress Note ---
Family Practice - PN: Subj Interval history: Patient states he is doing fairly well and his foot pain certainly is improving. Has not had any fever or chills and his vital signs and blood sugars have been stable. Hemoglobin A1c was 6.2. We will start him back on something for his diabetes. We are awaiting his final cultures and Dr. Jenkins will decide whether he needs any further debridement. Exam (Progress Note) - Constitutional Vitals: Period Temp Pulse Resp BP Sys/Silverio Pulse Ox Last 24 Hr 97.1 F-98.1 F 55-66 18-20 121-192/57-84 90-97 Exam: Objective well-developed gentleman in no acute distress. Patient states is feeling much better. He has bandages on both feet Cardiovascular: Heart rate is regular without murmurs or gallops. Respiratory: The lungs clear to auscultation bilaterally. Abdomen: Abdomen soft nontender to palpation. Extremities: The feet are bandaged. Results - Labs CBC & BMP: 03/26/17 05:34 03/26/17 05:34 Lab Results: I have reviewed the past 24 hour labs Assessment and Plan (1) Diabetic foot Status: Acute Assessment and plan: 03/23/2017: Hemoglobin A1c will be checked. Surgical consultation will be ordered. 03/26/2017: Patient's had debridement of both feet by Dr. Jenkins. Patient will require ongoing wound care and I will see if he is a candidate for [facility] or swing bed. 03/27/2017: Patient's ulceration certainly improving, final wound cultures are pending. Current Visit: Yes (2) Osteomyelitis Status: Acute Assessment and plan: 03/23/2017: Surgical consultation will be sought. Wound culture will be ordered. 03/27/2017: Final cultures are pending. Current Visit: Yes Qualifiers: Osteomyelitis location: foot Laterality: right Quality Measures - VTE Contraindication to Pharmacological VTE Prophylaxis: Clinical assessment deems Pt at low risk, no prophalaxis needed
[2017-03-27] MEDS: INSULIN LISPRO 100 UNIT/ML SUBCUT SCH ×4 (08:18→21:11)
[2017-03-27] MEDS: CEFTAROLINE 600 MG in SODIUM CHLORIDE 0.9% 50 ML IV SCH ×2 (10:02→21:10)
[2017-03-27] MEDS: BACITRACIN OINT 0.9 GM PACK TOP SCH (10:03)
[2017-03-27] MEDS: HydrOXYzine PAMOATE 25 MG CAPSULE PO SCH ×2 (10:03→21:10)
[2017-03-27] MEDS: amLODIPine 2.5 MG TABLET PO SCH (10:03)
[2017-03-27] MEDS: ASPIRIN EC 81 MG TABLET PO SCH (10:03)
[2017-03-27] MEDS: PENTOXIFYLLINE 400 MG TABLET PO SCH ×3 (10:03→21:10)
[2017-03-27] MEDS: ENOXAPARIN 40 MG/0.4 ML SYRINGE SUBCUT SCH (10:03)
[2017-03-27] MEDS: DOCUSATE SODIUM 100 MG CAPSULE PO SCH ×2 (10:03→21:10)
[2017-03-27] MEDS: CARVEDILOL 3.125 MG TABLET PO SCH (10:03)
[2017-03-27] MEDS: PANTOPRAZOLE 40 MG TABLET PO SCH (10:04)
[2017-03-27] MEDS: SODIUM HYPOCHLORITE 0.25% IRRIG 473 ML BOTTLE TOP SCH (10:04)
[2017-03-27] MEDS: HYDROmorphone 2 MG/1 ML VIAL IV PRN ×2 (10:04→17:06)
[2017-03-27] MEDS: SKIN HEALING OINT (AQUAPHOR) 50 GM TUBE TOP SCH (10:04)
--- NOTE | 2017-03-27 12:18 | Pathology Report from [facility] ---
[facility] [place] ACCESSION # : [id number] PATIENT NAME : Rd Rodriguez ORDERING DR : RD DOW MD CLINICAL HX: Diabetic foot ulcer, osteomyelitis RT great toe POST-OP DX: Same SPECIMEN INFO: RT great toe bone & tissue GROSS DESCRIPTION: Received in formalin labeled RD RODRIGUEZ is an aggregate of davis bone measuring 2.0 x 1.2 cm. Oxygen Equipment Preparer sections are submitted in one cassette following decalcification. DIAGNOSIS FOR RD RODRIGUEZ: BONE & TISSUE, RIGHT GREAT TOE, DEBRIDEMENT: Fragments of bone with areas of devitalization and adjacent necrosis, consistent with acute osteomyelitis. COLLECTED DATE: 03/25/2017 [facility] REPORT DATE: 03/27/2017 ELECTRONICALLY SIGNED BY: Ninfa Gonzalez M.D. 03/27/2017 - 11:32:55 [facility]
[2017-03-27] MEDS: CARVEDILOL 6.25 MG TABLET PO SCH (17:09)
[2017-03-27] MEDS: ATORVASTATIN 40 MG TABLET PO SCH (21:10)
[2017-03-27] MEDS: amLODIPine 5 MG TABLET PO SCH (21:10)
[2017-03-27] MEDS: POLYETHYLENE GLYCOL POWDER 17 GM PACK PO PRN (21:53)
--- NOTE | 2017-03-28 07:04 | Family Practice Progress Note ---
Family Practice - PN: Subj Interval history: Patient said he had a good night and states fluids feeling some better. He had 4 different pathogens on his final wound culture all are sensitive to Levaquin and I will switch him to this antibiotic. His blood pressures been elevated particularly systolic pressure and I started him on Norvasc yesterday. Exam (Progress Note) - Constitutional Vitals: Period Temp Pulse Resp BP Sys/Silverio Pulse Ox Last 24 Hr 97.3 F-98.3 F 45-72 18-20 154-185/80-88 91-98 Exam: Objective well-developed gentleman in no acute distress. Patient states is feeling much better. He states his feet are feeling better. Cardiovascular: Heart rate is regular without murmurs or gallops. Respiratory: The lungs clear to auscultation bilaterally. Abdomen: Abdomen soft nontender to palpation. Extremities: The feet are bandaged. Results - Labs CBC & BMP: 03/26/17 05:34 03/26/17 05:34 Lab Results: I have reviewed the past 24 hour labs Assessment and Plan (1) Diabetic foot Status: Chronic Assessment and plan: 03/23/2017: Hemoglobin A1c will be checked. Surgical consultation will be ordered. 03/26/2017: Patient's had debridement of both feet by Dr. Jenkins. Patient will require ongoing wound care and I will see if he is a candidate for [facility] or swing bed. 03/27/2017: Patient's ulceration certainly improving, final wound cultures are pending. Current Visit: Yes (2) Osteomyelitis Status: Acute Assessment and plan: 03/23/2017: Surgical consultation will be sought. Wound culture will be ordered. 03/27/2017: Final cultures are pending. 03/28/2017: Patient will require minimum 6 weeks of antibiotics. I have switched him to Levaquin. Current Visit: Yes Qualifiers: Osteomyelitis location: foot Laterality: right Quality Measures - VTE Contraindication to Pharmacological VTE Prophylaxis: Clinical assessment deems Pt at low risk, no prophalaxis needed
[2017-03-28] MEDS: INSULIN LISPRO 100 UNIT/ML SUBCUT SCH ×4 (07:58→21:05)
[2017-03-28] MEDS: SODIUM CHLORIDE 0.45% 1,000 ML IV SCH ×2 (08:53→21:02)
[2017-03-28] MEDS: LEVOFLOXACIN INJ 500 MG in PREMIX 1 EACH IV SCH (08:53)
[2017-03-28] MEDS: DOCUSATE SODIUM 100 MG CAPSULE PO SCH ×2 (08:54→21:04)
[2017-03-28] MEDS: POLYETHYLENE GLYCOL POWDER 17 GM PACK PO PRN (08:54)
[2017-03-28] MEDS: amLODIPine 5 MG TABLET PO SCH ×2 (08:54→21:05)
[2017-03-28] MEDS: CARVEDILOL 6.25 MG TABLET PO SCH ×2 (08:54→16:08)
[2017-03-28] MEDS: SODIUM HYPOCHLORITE 0.25% IRRIG 473 ML BOTTLE TOP SCH (08:54)
[2017-03-28] MEDS: ASPIRIN EC 81 MG TABLET PO SCH (08:54)
[2017-03-28] MEDS: PANTOPRAZOLE 40 MG TABLET PO SCH (08:54)
[2017-03-28] MEDS: PENTOXIFYLLINE 400 MG TABLET PO SCH ×3 (08:54→21:05)
[2017-03-28] MEDS: ENOXAPARIN 40 MG/0.4 ML SYRINGE SUBCUT SCH (08:54)
[2017-03-28] MEDS: BACITRACIN OINT 0.9 GM PACK TOP SCH (08:54)
[2017-03-28] MEDS: SKIN HEALING OINT (AQUAPHOR) 50 GM TUBE TOP SCH (08:55)
--- NOTE | 2017-03-28 09:54 | General Surgery Progress Note ---
Assessment and Plan (1) Diabetic foot Status: Chronic Assessment and plan: Impression: Diabetic foot ulcer right great toe with ischemic changes Plan: Surgical debridement possible partial amputation Agree with present antibiotics. We will check some vascular studies to be sure that we have pretty good circulatory status. 03/26/2017. Patient generally is doing fairly well at this point time. The ulcer of his left foot looks good and is fairly superficial and should respond nicely if we can keep pressure off of it. The wound of the right great toe is clean there is no necrotic tissue seen or further drainage noted at this point. A looks to thickened at this point time to consider that would be able to get it closed so it is likely just have to continue present wound care at this point. He does have his shoes for walking which gave him some protection to the foot at this time. He continued care to the toe at this time while we are waiting on the finals of his cultures. Cannot really say what the best antibiotics would be formed until we see these final cultures. 03/28/2017. Patient is continued to do fairly well without problems. The superficial ulcer on the left foot should respond nicely and heel looks good and clean with a good clean base at this time. The right great toe wound is fairly clean little bit of maceration about the edges of this skin area. No unusual drainage seen at this point. We just have to maintain present wound care in order to keep this thing clean and continue to get some healing going. Current Visit: Yes (2) Osteomyelitis Status: Acute Assessment and plan: Impression: Possible osteomyelitis of the right great toe. Plan: Debridement and cultures. Current Visit: Yes Qualifiers: Osteomyelitis location: foot Laterality: right (3) Diabetes mellitus, insulin dependent (IDDM), controlled Status: Chronic Assessment and plan: Impression: Diabetes mellitus under pretty good control at this time do not know what can control he has outside the hospital. Plan: Medical management A1c pending Current Visit: Yes (4) History of heart surgery Status: Acute Assessment and plan: Impression: History of cardiac surgery Current Visit: Yes Subjective Patient reports: Present: no new complaints, tolerating a regular diet, afebrile Exam - Constitutional Vitals: Period Temp Pulse Resp BP Sys/Silverio Pulse Ox Last 24 Hr 97.1 F-98.3 F 45-70 18-20 154-196/80-91 91-97 General appearance: mild distress - Head Head exam: Present: normal inspection - ENT ENT exam: Present: normal exam - Neck Neck exam: Present: normal inspection - Respiratory Respiratory exam: Present: clear to auscultation bilaterally, rales - Cardiovascular Cardiovascular exam: Present: RRR - GI/Abdominal GI/Abdominal exam: Present: hypoactive bowel sounds, soft - Extremities Exam Extremities exam: Present: other (Ulcer of the left foot looks good and superficial and should heal up nicely with avoidance of pressure. The right great toe wound is fairly clean little bit of maceration at the edges but no unusual drainage present.) - Back Exam Back exam: Present: normal inspection - Neurological Exam Neurological exam: Present: alert, oriented X3, CN II-XII intact - Skin Skin exam: Present: normal color, warm, dry Results - Labs CBC & BMP: 03/26/17 05:34 03/26/17 05:34 Lab Results: I have reviewed the past 24 hour labs Quality Measures - VTE Contraindication to Pharmacological VTE Prophylaxis: Clinical assessment deems Pt at low risk, no prophalaxis needed
[2017-03-28] MEDS: ATORVASTATIN 40 MG TABLET PO SCH (21:05)
--- NOTE | 2017-03-29 07:48 | Family Practice Progress Note ---
Family Practice - PN: Subj Interval history: 03/29/17 -patient states that he is doing well. Afebrile denies any new complaints. Blood sugars are under good control. Vitals are stable. Reviewed cultures and Dr. Jenkins has modified antibiotics. His physical examination is otherwise stable other than the wound. We will continue present treatment plan Exam (Progress Note) - Constitutional Vitals: Period Temp Pulse Resp BP Sys/Silverio Pulse Ox Last 24 Hr 97.1 F-98.6 F 55-65 20-20 138-196/61-91 97-98 Results - Labs CBC & BMP: 03/26/17 05:34 03/26/17 05:34 Quality Measures - VTE Contraindication to Pharmacological VTE Prophylaxis: Clinical assessment deems Pt at low risk, no prophalaxis needed
[2017-03-29] MEDS: INSULIN LISPRO 100 UNIT/ML SUBCUT SCH ×2 (07:50→11:28)
--- NOTE | 2017-03-29 08:32 | General Surgery Progress Note ---
Assessment and Plan (1) Diabetic foot Status: Chronic Assessment and plan: Impression: Diabetic foot ulcer right great toe with ischemic changes Plan: Surgical debridement possible partial amputation Agree with present antibiotics. We will check some vascular studies to be sure that we have pretty good circulatory status. 03/26/2017. Patient generally is doing fairly well at this point time. The ulcer of his left foot looks good and is fairly superficial and should respond nicely if we can keep pressure off of it. The wound of the right great toe is clean there is no necrotic tissue seen or further drainage noted at this point. A looks to thickened at this point time to consider that would be able to get it closed so it is likely just have to continue present wound care at this point. He does have his shoes for walking which gave him some protection to the foot at this time. He continued care to the toe at this time while we are waiting on the finals of his cultures. Cannot really say what the best antibiotics would be formed until we see these final cultures. 03/28/2017. Patient is continued to do fairly well without problems. The superficial ulcer on the left foot should respond nicely and heel looks good and clean with a good clean base at this time. The right great toe wound is fairly clean little bit of maceration about the edges of this skin area. No unusual drainage seen at this point. We just have to maintain present wound care in order to keep this thing clean and continue to get some healing going. 03/29/2017. Patient continues to do well and will continue IV antibiotics while he is here for we are seeing exactly where he could go for additional care. [facility] has rejected him since he does not meet requirements at this time. We are not obligated to keep him on IV antibiotics we can easily switch him over to p.o. antibiotics to counter cover this organisms and treated father. He probably going need at least another 3 weeks of at least p.o. antibiotics since he did have osteomyelitis in the distal part of the toe. Hopefully with additional treatment and care this wound will go ahead and heal or at least clean up to where we could bring it back for little additional surgery for closure. Certainly waiting to see if we can get a placement for him to accept him but he could be on p.o. antibiotics once he leaves here. Current Visit: Yes (2) Osteomyelitis Status: Acute Assessment and plan: Impression: Possible osteomyelitis of the right great toe. Plan: Debridement and cultures. Current Visit: Yes Qualifiers: Osteomyelitis location: foot Laterality: right (3) Diabetes mellitus, insulin dependent (IDDM), controlled Status: Chronic Assessment and plan: Impression: Diabetes mellitus under pretty good control at this time do not know what can control he has outside the hospital. Plan: Medical management A1c pending Current Visit: Yes (4) History of heart surgery Status: Acute Assessment and plan: Impression: History of cardiac surgery Current Visit: Yes Subjective Patient reports: Present: no new complaints, afebrile Exam - Constitutional Vitals: Period Temp Pulse Resp BP Sys/Silverio Pulse Ox Last 24 Hr 97.3 F-98.6 F 55-65 20-20 138-184/61-85 94-98 General appearance: no acute distress - Neck Neck exam: Present: normal inspection - Respiratory Respiratory exam: Present: rales - Cardiovascular Cardiovascular exam: Present: RRR - GI/Abdominal GI/Abdominal exam: Present: hypoactive bowel sounds, soft - Extremities Exam Extremities exam: Present: other (Wound of the right great toe continues to do well edema is less and there is no significant drainage present.) - Back Exam Back exam: Present: normal inspection - Neurological Exam Neurological exam: Present: alert, oriented X3 - Skin Skin exam: Present: normal color, warm, dry Results - Labs CBC & BMP: 03/26/17 05:34 03/26/17 05:34 Lab Results: I have reviewed the past 24 hour labs Quality Measures - VTE Contraindication to Pharmacological VTE Prophylaxis: Clinical assessment deems Pt at low risk, no prophalaxis needed
[2017-03-29] MEDS: BACITRACIN OINT 0.9 GM PACK TOP SCH (08:54)
[2017-03-29] MEDS: DOCUSATE SODIUM 100 MG CAPSULE PO SCH (08:54)
[2017-03-29] MEDS: ASPIRIN EC 81 MG TABLET PO SCH (08:54)
[2017-03-29] MEDS: PANTOPRAZOLE 40 MG TABLET PO SCH (08:54)
[2017-03-29] MEDS: PENTOXIFYLLINE 400 MG TABLET PO SCH ×2 (08:54→14:03)
[2017-03-29] MEDS: amLODIPine 5 MG TABLET PO SCH (08:54)
[2017-03-29] MEDS: CARVEDILOL 6.25 MG TABLET PO SCH (08:54)
[2017-03-29] MEDS: SKIN HEALING OINT (AQUAPHOR) 50 GM TUBE TOP SCH (08:54)
[2017-03-29] MEDS: SODIUM HYPOCHLORITE 0.25% IRRIG 473 ML BOTTLE TOP SCH (08:55)
[2017-03-29] MEDS: LEVOFLOXACIN INJ 500 MG in PREMIX 1 EACH IV SCH (08:55)
[2017-03-29] MEDS: ENOXAPARIN 40 MG/0.4 ML SYRINGE SUBCUT SCH (08:56)
--- NOTE | 2017-03-29 10:11 | Case Mgmt Physician Query Form ---
TB Signs and Symptoms Screening ([place]) INSTRUCTIONS: To be completed annually on residents/staff with a significant Tuberculin Skin Test (TST) upon admission/hire or a prior significant TST. To be completed on all staff at hire. Please respond to each listed symptom with an (X) in either the "YES" or "NO" box. Do you currently have any of the following symptoms: YES NO ( ) (x ) A cough If yes, is it: ( ) Productive ( ) Non- productive ( ) ( x) Hemoptysis (spitting up blood) ( ) (x ) Chest pains ( ) (x ) Weight Loss ( ) ( x) Fever ( ) (x) Night Sweats ( ) (x ) Weakness ( ) ( x) Loss of Appetite ( ) x ) Difficulty Breathing If you answered YES" to any of the above questions, how long have symptoms been present? Comments: ELZA
[2017-03-29] MEDS ORDERED: TUBERCULIN SKIN TEST 0.1 ML SYRINGE INTRADERM ONE (10:12)
[2017-03-29 11:50] VITALS: BP 166/77
[2017-03-29] MEDS: POLYETHYLENE GLYCOL POWDER 17 GM PACK PO PRN (11:58)
--- NOTE | 2017-03-29 13:23 | Discharge Summary ---
Hospital Course - Hospital Course Hospital Course: Mr. Mahan is a 81 year old male Patient 81-year-old white male presented emergency room with right great toe pain and ulceration. Patient does have a history of diabetes and has had previous amputations. Patient states it started looking infected about 3 weeks ago and he delayed coming to the emergency room until looks like debridement and possible amputation is necessary. Patient states he stopped taking his diabetic medicines because he did not need it but that was his decision and not mine. Patient states she has had a little fever with this but no chills. He denies any trauma to the area and has a large ulceration and necrotic changes on tip of his right great toe. He denies any other problems. In view of history patient was admitted for further evaluation and therapy HOSPITAL COURSE- patient was admitted to Hospital lab and x-ray studies obtained. After appropriate cultures were obtained patient was started on Antibiotics. He was seen in consultation by Dr. Jenkins. The patient was subsequently taken to surgery and had extensive debridement of multiple wounds on his feet. 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 Cultures and pathology was obtained. Subsequent cultures revealed multiple organisms sensitive to Levaquin. Patient was started on daily wound care and is beginning to improve. Arrangements have been made for patient to be transferred to [facility] for wound care. Dr. Jenkins has written extensive wound care orders and plans to follow the patient who may require future surgery for complete closure of wounds. We will discharge to the [facility] and continue present treatment plan. Dr. Yan will follow patient at the [facility] Diagnosis - Discharge Diagnosis (1) diabetic ulcers both feet Status: Acute (2) Osteomyelitis Status: Acute (3) Diabetes mellitus, insulin dependent (IDDM), controlled Status: Chronic (4) Dyslipidemia Status: Chronic (5) Essential hypertension Status: Chronic Specialty Discharge - Follow Up or Referrals Follow up with: Rd Jenkins MD [Physician] - 04/09/17 10:30 am (2-3 weeks please bring all meds ,i.d. and insurance card) Discharge Plan - Discharge Data Disposition: Swing Bed, [facility], [facility] Condition at Discharge: Stable Discharge Diet: diabetic diet Activity: ambulate only with your walker Weight Bearing at Discharge: weight bear as tolerated Contact your physician if you experience:: fever over 101, Redness or swelling, Nausea/Vomiting - Discharge Medications New amLODIPine [Norvasc] 5 mg PO BID #30 tablet Levofloxacin Tab [Levaquin Tab] 500 mg PO DAILY #20 tablet Pentoxifylline [TRENtal] 400 mg PO TID #90 tablet Continue HydrOXYzine PAMOATE CAP [Vistaril Cap] 25 mg PO BID Atorvastatin [Lipitor] 40 mg PO BEDTIME Carvedilol 3.125 mg PO DAILY Aspirin [Ecotrin] 81 mg PO DAILY - Follow Up or Referral Follow Up: Rd Jenkins MD [Physician] - 04/09/17 10:30 am (2-3 weeks please bring all meds ,i.d. and insurance card) Jesse Yan MD [Primary Care Provider] - (Dr. Yan will follow at [facility]) - Forms/Instructions Exam - Constitutional Vitals: Period Temp Pulse Resp BP Sys/Silverio Pulse Ox Last 24 Hr 97.3 F-98.6 F 54-65 18-20 138-184/61-85 93-98 General appearance: no acute distress - Head Head exam: Present: normal inspection - Eye Pupils: Present: TREMAYNE - ENT ENT exam: Present: normal exam - Neck Neck exam: Present: normal inspection - Respiratory Respiratory exam: Present: clear to auscultation bilaterally - Cardiovascular Cardiovascular exam: Present: irregular rhythm - GI/Abdominal GI/Abdominal exam: Present: normal bowel sounds, soft - Extremities Exam Extremities exam: Present: other (patient has multiple ulcers on both feet) - Back Exam Back exam: Present: normal inspection - Neurological Exam Neurological exam: Present: alert - Psychiatric Psychiatric exam: Present: normal affect - Skin Skin exam: Present: other (patient has diabetic ulcerations on both feet) Discharge Results Procedures and tests throughout hospitalization: Pending Orders 03/30/17 04:00 Comp Blood Count Auto Diff IN AM Comprehensive Metabolic Panel IN AM Labs on day of discharge: Labs from last 24 hours 03/29/17 03/29/17 03/28/17 11:06 06:39 20:36 POC Glucose 87 77 107 H 03/28/17 15:19 POC Glucose 93 DS: Provider Date of admission: 03/22/17 22:59 Primary care physician: Jesse Yan MD Attending physician on admission: Jesse Yan MD Consults: 03/22/17 22:59 Consult to Case Mgmt/Social Srvs [CONS] Routine Reason for Case Mgmt/Social Srvs: Discharge Planning 03/23/17 05:53 Consult to Physician [CONS] Routine Comment: Consulting Provider: Rd Jenkins 03/23/17 06:02 Consult to Wound Care - North [CONS] Routine Reason for Wound Care: Wound Care Management 03/23/17 08:42 Consult to Anesthesiology [CONS] Routine Consulting Provider: Reason for Anesthesiology: Pre-op Clearance 03/25/17 11:22 Consult to Case Mgmt/Social Srvs [CONS] Routine Reason for Case Mgmt/Social Srvs: Swingbed/SNF/Skilled Nursing 03/25/17 11:54 Consult to Physical Therapy [CONS] Routine Reason for Physical Therapy: Ambulation Start Therapy: Today Consult Comment: needs walker, he has ortho shoes 03/27/17 09:40 Consult to Occupational Therapy [CONS] Routine Reason for Occupational Therapy: Evaluate and Treat Discharging clinician: Adin Villalobos DO
[2017-03-29] MEDS ORDERED: LEVOFLOXACIN 500 MG TABLET PO SCH (13:30)
== END 2017-03-29 15:20 | disposition swing bed (61) | DRG 617 ==
LOC: N.ED 18:54 → N.EDINP 22:59 → N.2E 23:28
PROVIDERS: ADMIT Family Medicine; ATTEND Family Medicine

== ENCOUNTER 2017-09-08 17:12 | Inpatient (IN) ==
[2017-09-08 18:38] LABS: Basophils % 0.3 % (0.0-0.8); Eosinophils # 0.4 10*3/uL (0.0-0.87); Eosinophils % 4.1 % (0.00-10.9); Hematocrit 41.3 VOL% (42.0-52.0); Hemoglobin 13.3 GM/DL (14.0-18.0); Immature Granulocytes % 1.1 %; Immature Granulocytes Absolute 0.11 #; Lymphocytes # 1.8 10*3/uL (1.4-4.0); Lymphocytes % 17.6 % (21.2-54.2); Mean Corpuscular HGB Conc 32.2 GM/DL (32-36); Mean Corpuscular Hemoglobin 29 PG (27-34); Mean Corpuscular Volume 89.6 FL (87-102); Mean Platelet Volume 10.8 FL (9.6-12.0); Monocytes # 1.2 10*3/uL (0.11-0.8); Monocytes % 11.4 % (1.7-12.7); Neutrophils # 6.8 10*3/uL (1.4-7.4); Neutrophils % 65.5 % (38.7-73.9); Platelet Count 274 T/CUMM (130-400); Red Blood Count 4.61 MC/CUMM (3.8-5.5); Red Cell Distribution Width 12.5 % (9.3-17.3); White Blood Count 10.4 T/CUMM (4-12)
[2017-09-08 19:04] LABS: Calcium 8.9 MG/DL (8.5-10.1); Osmolality,Calculated 279.4 MOS/KG (273-304); Potassium 4.4 MMOL/L (3.5-5.1)
[2017-09-08] MEDS ORDERED: cefTRIAXone 1,000 MG in SODIUM CHLORIDE 0.9% 100 ML IV STA (19:10)
[2017-09-08] MEDS ORDERED: ACETAMINOPHEN 325 MG TABLET PO PRN (19:22)
[2017-09-08] MEDS ORDERED: ONDANSETRON 4 MG/2 ML VIAL IV PRN (19:22)
[2017-09-08] MEDS ORDERED: DEXTROSE 50% 25 GM/50 ML VIAL IV PRN (19:22)
[2017-09-08] MEDS ORDERED: GLUCAGON 1 MG VIAL IM PRN (19:22)
[2017-09-08] MEDS ORDERED: cefTRIAXone 1,000 MG VIAL ONE (19:24)
[2017-09-08 19:46] LABS: Sedimentation Rate-Westergren 81 MM/HR (0-20)
[2017-09-08] MEDS: DOCUSATE SODIUM 100 MG CAPSULE PO SCH (23:08)
[2017-09-09] MEDS: PANTOPRAZOLE 40 MG TABLET PO SCH (09:14)
[2017-09-09] MEDS: DOCUSATE SODIUM 100 MG CAPSULE PO SCH ×2 (09:14→22:29)
[2017-09-09] MEDS: CIPROFLOXACIN INJ 400 MG in PREMIX 1 EACH IV SCH ×2 (11:42→22:30)
[2017-09-09] MEDS ORDERED: VANCOMYCIN INJ 1,000 MG in SODIUM CHLORIDE 0.9% 250 ML IV SCH (12:00)
[2017-09-09] MEDS: INSULIN LISPRO 100 UNIT/ML SUBCUT SCH ×2 (12:08→18:25)
[2017-09-09] MEDS: FUROSEMIDE 20 MG TABLET PO SCH (22:29)
[2017-09-09] MEDS: ATORVASTATIN 40 MG TABLET PO SCH (22:29)
[2017-09-09] MEDS: TAMSULOSIN 0.4 MG CAPSULE PO SCH (22:30)
[2017-09-09] MEDS: CARVEDILOL 3.125 MG TABLET PO SCH (22:30)
[2017-09-09] MEDS: ASPIRIN EC 81 MG TABLET PO SCH (22:30)
[2017-09-10] MEDS: INSULIN LISPRO 100 UNIT/ML SUBCUT SCH ×4 (00:28→18:41)
[2017-09-10 05:13] LABS: Basophils % 0.4 % (0.0-0.8); Eosinophils # 0.5 10*3/uL (0.0-0.87); Eosinophils % 6.3 % (0.00-10.9); Hematocrit 41.7 VOL% (42.0-52.0); Hemoglobin 13.5 GM/DL (14.0-18.0); Immature Granulocytes % 0.7 %; Immature Granulocytes Absolute 0.06 #; Lymphocytes # 1.5 10*3/uL (1.4-4.0); Lymphocytes % 17.8 % (21.2-54.2); Mean Corpuscular HGB Conc 32.4 GM/DL (32-36); Mean Corpuscular Hemoglobin 29 PG (27-34); Mean Corpuscular Volume 89.3 FL (87-102); Mean Platelet Volume 10.7 FL (9.6-12.0); Monocytes # 0.9 10*3/uL (0.11-0.8); Monocytes % 10.5 % (1.7-12.7); Neutrophils # 5.3 10*3/uL (1.4-7.4); Neutrophils % 64.3 % (38.7-73.9); Platelet Count 278 T/CUMM (130-400); Red Blood Count 4.67 MC/CUMM (3.8-5.5); Red Cell Distribution Width 12.5 % (9.3-17.3); White Blood Count 8.3 T/CUMM (4-12)
[2017-09-10 06:10] LABS: Calcium 8.6 MG/DL (8.5-10.1); Osmolality,Calculated 280.4 MOS/KG (273-304); Potassium 4.4 MMOL/L (3.5-5.1)
[2017-09-10] MEDS ORDERED: SKIN HEALING OINT (AQUAPHOR) 50 GM TUBE TOP PRN (09:29)
[2017-09-10] MEDS ORDERED: CHLORHEXIDINE 4% SOLN 118 ML BOTTLE TOP ONE (09:29)
[2017-09-10] MEDS: CIPROFLOXACIN INJ 400 MG in PREMIX 1 EACH IV SCH ×2 (10:27→20:49)
[2017-09-10] MEDS: CARVEDILOL 3.125 MG TABLET PO SCH ×2 (10:28→20:49)
[2017-09-10] MEDS: PANTOPRAZOLE 40 MG TABLET PO SCH (10:28)
[2017-09-10] MEDS: DOCUSATE SODIUM 100 MG CAPSULE PO SCH ×2 (10:28→20:48)
[2017-09-10] MEDS: BACITRACIN OINT 0.9 GM PACK TOP SCH (12:13)
[2017-09-10] MEDS: VANCOMYCIN INJ 1,000 MG in SODIUM CHLORIDE 0.9% 250 ML IV SCH ×2 (13:23→22:12)
[2017-09-10] MEDS: TAMSULOSIN 0.4 MG CAPSULE PO SCH (20:48)
[2017-09-10] MEDS: ATORVASTATIN 40 MG TABLET PO SCH (20:49)
[2017-09-10] MEDS: FUROSEMIDE 20 MG TABLET PO SCH (20:49)
[2017-09-10] MEDS: ASPIRIN EC 81 MG TABLET PO SCH (20:49)
[2017-09-11] MEDS ORDERED: LORazepam 2 MG/1 ML VIAL ONE (03:37)
[2017-09-11] MEDS ORDERED: LORazepam 2 MG/1 ML VIAL IV ONE (05:00)
[2017-09-11] MEDS ORDERED: HALOPERIDOL 5 MG/ML AMP IM ONE (05:00)
[2017-09-11] MEDS ORDERED: BUPIVACAINE 0.25% 50 ML VIAL ONE (06:25)
[2017-09-11] MEDS: INSULIN LISPRO 100 UNIT/ML SUBCUT SCH ×4 (06:36→18:38)
[2017-09-11] MEDS ORDERED: ceFAZolin 1,000 MG in SYRINGE 1 EACH IV ONE (07:00)
[2017-09-11] MEDS ORDERED: LACTATED RINGERS 1,000 ML IV SCH (08:00)
[2017-09-11] MEDS ORDERED: BACITRACIN OINT 0.9 GM PACK TOP ONE (08:17)
[2017-09-11] MEDS ORDERED: oxyCODONE/ACETAMINOPHEN 5-325 MG TABLET PO PRN (08:23)
[2017-09-11] MEDS ORDERED: BISACODYL 5 MG TABLET PO PRN (08:23)
[2017-09-11] MEDS ORDERED: PROPOFOL 200 MG/20 ML VIAL IV ONE (08:47)
[2017-09-11] MEDS ORDERED: SEVOFLURANE 1 UNIT/15 MINUTE INH ONE (08:48)
[2017-09-11] MEDS ORDERED: PHENYLEPHRINE 1 MG/10 ML SYRINGE IV ONE (08:48)
[2017-09-11] MEDS ORDERED: ePHEDrine 50 MG/ML AMP ONE (08:48)
[2017-09-11] MEDS: BACITRACIN OINT 0.9 GM PACK TOP SCH (10:18)
[2017-09-11] MEDS: SODIUM HYPOCHLORITE 0.25% IRRIG 473 ML BOTTLE TOP SCH (10:18)
[2017-09-11] MEDS: CARVEDILOL 3.125 MG TABLET PO SCH ×2 (10:53→21:06)
[2017-09-11] MEDS: CIPROFLOXACIN INJ 400 MG in PREMIX 1 EACH IV SCH ×2 (10:53→21:05)
[2017-09-11] MEDS: PANTOPRAZOLE 40 MG TABLET PO SCH (10:53)
[2017-09-11] MEDS: DOCUSATE SODIUM 100 MG CAPSULE PO SCH ×2 (10:53→21:06)
[2017-09-11] MEDS: HYDROmorphone 2 MG/1 ML VIAL IV PRN ×2 (10:54→17:31)
[2017-09-11] MEDS: VANCOMYCIN INJ 1,000 MG in SODIUM CHLORIDE 0.9% 250 ML IV SCH ×2 (13:03→22:00)
[2017-09-11 15:55] LABS: Hematocrit 42.9 VOL% (42.0-52.0); Hemoglobin 14.4 GM/DL (14.0-18.0)
[2017-09-11] MEDS: ceFAZolin 2,000 MG in PREMIX 1 EACH IV SCH ×2 (16:10→23:00)
[2017-09-11] MEDS: ATORVASTATIN 40 MG TABLET PO SCH (21:06)
[2017-09-11] MEDS: FUROSEMIDE 20 MG TABLET PO SCH (21:07)
[2017-09-11] MEDS: ASPIRIN EC 81 MG TABLET PO SCH (21:07)
[2017-09-11] MEDS: TAMSULOSIN 0.4 MG CAPSULE PO SCH (21:07)
[2017-09-12 05:04] LABS: Basophils % 0.2 % (0.0-0.8); Eosinophils # 0.5 10*3/uL (0.0-0.87); Eosinophils % 5.6 % (0.00-10.9); Hematocrit 40.2 VOL% (42.0-52.0); Immature Granulocytes % 0.5 %; Immature Granulocytes Absolute 0.04 #; Lymphocytes # 1.9 10*3/uL (1.4-4.0); Lymphocytes % 23.4 % (21.2-54.2); Mean Corpuscular HGB Conc 32.3 GM/DL (32-36); Mean Corpuscular Hemoglobin 29 PG (27-34); Mean Corpuscular Volume 88.9 FL (87-102); Mean Platelet Volume 10.5 FL (9.6-12.0); Monocytes # 0.8 10*3/uL (0.11-0.8); Monocytes % 9.8 % (1.7-12.7); Neutrophils % 60.5 % (38.7-73.9); Platelet Count 221 T/CUMM (130-400); Red Blood Count 4.52 MC/CUMM (3.8-5.5); Red Cell Distribution Width 12.6 % (9.3-17.3); White Blood Count 8.2 T/CUMM (4-12)
[2017-09-12 05:38] LABS: Calcium 8.5 MG/DL (8.5-10.1); Osmolality,Calculated 275.7 MOS/KG (273-304); Potassium 4.3 MMOL/L (3.5-5.1)
[2017-09-12] MEDS: INSULIN LISPRO 100 UNIT/ML SUBCUT SCH ×4 (06:16→15:40)
[2017-09-12] MEDS: BACITRACIN OINT 0.9 GM PACK TOP SCH (11:25)
[2017-09-12] MEDS: DOCUSATE SODIUM 100 MG CAPSULE PO SCH ×2 (11:26→22:00)
[2017-09-12] MEDS: CARVEDILOL 3.125 MG TABLET PO SCH ×2 (11:26→22:01)
[2017-09-12] MEDS: ENOXAPARIN 40 MG/0.4 ML SYRINGE SUBCUT SCH (11:26)
[2017-09-12] MEDS: PANTOPRAZOLE 40 MG TABLET PO SCH (11:26)
[2017-09-12] MEDS: CIPROFLOXACIN INJ 400 MG in PREMIX 1 EACH IV SCH ×2 (11:26→22:01)
[2017-09-12] MEDS: VANCOMYCIN INJ 1,000 MG in SODIUM CHLORIDE 0.9% 250 ML IV SCH (13:30)
[2017-09-12] MEDS: SODIUM HYPOCHLORITE 0.25% IRRIG 473 ML BOTTLE TOP SCH (13:45)
[2017-09-12] MEDS: ATORVASTATIN 40 MG TABLET PO SCH (22:00)
[2017-09-12] MEDS: ASPIRIN EC 81 MG TABLET PO SCH (22:01)
[2017-09-12] MEDS: FUROSEMIDE 20 MG TABLET PO SCH (22:01)
[2017-09-12] MEDS: TAMSULOSIN 0.4 MG CAPSULE PO SCH (22:01)
[2017-09-13] MEDS: INSULIN LISPRO 100 UNIT/ML SUBCUT SCH ×4 (00:33→18:30)
[2017-09-13] MEDS: VANCOMYCIN INJ 1,000 MG in SODIUM CHLORIDE 0.9% 250 ML IV SCH ×3 (00:35→21:21)
[2017-09-13] MEDS: CIPROFLOXACIN INJ 400 MG in PREMIX 1 EACH IV SCH (09:42)
[2017-09-13] MEDS: ENOXAPARIN 40 MG/0.4 ML SYRINGE SUBCUT SCH (09:43)
[2017-09-13] MEDS: PANTOPRAZOLE 40 MG TABLET PO SCH (09:43)
[2017-09-13] MEDS: BACITRACIN OINT 0.9 GM PACK TOP SCH (09:43)
[2017-09-13] MEDS: SODIUM HYPOCHLORITE 0.25% IRRIG 473 ML BOTTLE TOP SCH (09:43)
[2017-09-13] MEDS: DOCUSATE SODIUM 100 MG CAPSULE PO SCH ×2 (09:43→21:17)
[2017-09-13] MEDS: CARVEDILOL 3.125 MG TABLET PO SCH ×2 (09:43→21:18)
[2017-09-13] MEDS: ASPIRIN EC 81 MG TABLET PO SCH (21:17)
[2017-09-13] MEDS: FUROSEMIDE 20 MG TABLET PO SCH (21:17)
[2017-09-13] MEDS: TAMSULOSIN 0.4 MG CAPSULE PO SCH (21:17)
[2017-09-14] MEDS: INSULIN LISPRO 100 UNIT/ML SUBCUT SCH ×3 (00:25→13:30)
[2017-09-14 06:16] LABS: Basophils % 0.5 % (0.0-0.8); Eosinophils # 0.6 10*3/uL (0.0-0.87); Eosinophils % 9.4 % (0.00-10.9); Hematocrit 42.6 VOL% (42.0-52.0); Immature Granulocytes % 0.8 %; Immature Granulocytes Absolute 0.05 #; Lymphocytes # 1.4 10*3/uL (1.4-4.0); Mean Corpuscular HGB Conc 32.9 GM/DL (32-36); Mean Corpuscular Hemoglobin 29 PG (27-34); Mean Corpuscular Volume 87.7 FL (87-102); Mean Platelet Volume 11.1 FL (9.6-12.0); Monocytes # 0.8 10*3/uL (0.11-0.8); Monocytes % 12.6 % (1.7-12.7); Neutrophils # 3.1 10*3/uL (1.4-7.4); Neutrophils % 52.7 % (38.7-73.9); Platelet Count 239 T/CUMM (130-400); Red Blood Count 4.86 MC/CUMM (3.8-5.5); Red Cell Distribution Width 12.7 % (9.3-17.3)
[2017-09-14 06:54] LABS: Calcium 8.9 MG/DL (8.5-10.1); Osmolality,Calculated 282.3 MOS/KG (273-304); Potassium 3.9 MMOL/L (3.5-5.1)
[2017-09-14] MEDS: SODIUM HYPOCHLORITE 0.25% IRRIG 473 ML BOTTLE TOP SCH (08:54)
[2017-09-14] MEDS: DOCUSATE SODIUM 100 MG CAPSULE PO SCH (08:54)
[2017-09-14] MEDS: BACITRACIN OINT 0.9 GM PACK TOP SCH (08:54)
[2017-09-14] MEDS: PANTOPRAZOLE 40 MG TABLET PO SCH (08:54)
[2017-09-14] MEDS: CARVEDILOL 3.125 MG TABLET PO SCH (08:54)
[2017-09-14] MEDS: ENOXAPARIN 40 MG/0.4 ML SYRINGE SUBCUT SCH (08:54)
[2017-09-14] MEDS: VANCOMYCIN INJ 1,000 MG in SODIUM CHLORIDE 0.9% 250 ML IV SCH (09:26)
[2017-09-14] MEDS ORDERED: TUBERCULIN SKIN TEST 0.1 ML SYRINGE INTRADERM ONE (11:30)
[2017-09-14 12:05] VITALS: BP 132/80
== END 2017-09-14 16:02 | disposition home health service (06) | DRG 617 ==
LOC: N.ED 17:12 → N.EDINP 19:22 → N.2E 20:09
PROVIDERS: ADMIT Family Medicine; ATTEND Family Medicine

== ENCOUNTER 2018-02-11 07:11 | Inpatient (IN) ==
[2018-02-11 07:59] LABS: Basophils % 0.3 % (0.0-0.8); Eosinophils # 0.2 10*3/uL (0.0-0.87); Eosinophils % 2.1 % (0.00-10.9); Hematocrit 42.6 VOL% (42.0-52.0); Hemoglobin 14.6 GM/DL (14.0-18.0); Immature Granulocytes % 0.4 %; Immature Granulocytes Absolute 0.03 #; Lymphocytes # 1.4 10*3/uL (1.4-4.0); Lymphocytes % 20.3 % (21.2-54.2); Mean Corpuscular HGB Conc 34.3 GM/DL (32-36); Mean Corpuscular Hemoglobin 30 PG (27-34); Mean Corpuscular Volume 86.9 FL (87-102); Mean Platelet Volume 12.9 FL (9.6-12.0); Monocytes # 0.9 10*3/uL (0.11-0.8); Monocytes % 12.3 % (1.7-12.7); Neutrophils # 4.6 10*3/uL (1.4-7.4); Neutrophils % 64.6 % (38.7-73.9); Platelet Count 92 T/CUMM (130-400); Red Cell Distribution Width 14.8 % (9.3-17.3); White Blood Count 7.1 T/CUMM (4-12)
[2018-02-11 08:10] LABS: PT Patient Result 10.8 SECS; Partial Thromboplastin Time 25.9 SECS (0-40)
[2018-02-11 08:15] LABS: Apearance,Urine Slightly Hazy (Clear); Bacteria,Urine Occasional /HPF (Few); Bilirubin,Urine Negative (Negative); Blood, Urine Moderate mg/dL (Negative); Glucose,Urine (UA) Negative (Negative); Ketones,Urine Negative (Negative); Mucus,Urine Occasional /LPF (Occasional); Nitrite,Urine Negative (Negative); Protein,Urine Negative; RBC,Urine 69 /HPF (0-4); Squamous Epithelial Cell,Urine Occasional /HPF (0-10); Urine Color Straw (Yellow); Urine Specific Gravity 1.005 (1.001-1.035); Urine Urobilinogen < 2.0 EU/DL (0.2-1.0); WBC,Urine 1 /HPF (0-6)
[2018-02-11 08:19] LABS: Platelet Estimate Decreased
[2018-02-11 08:23] LABS: Albumin 4.1 G/DL (3.4-5.0); Bilirubin,Total 1.5 MG/DL (0.2-1.0); Osmolality,Calculated 276.7 MOS/KG (273-304); Potassium 3.7 MMOL/L (3.5-5.1); Total Protein 8.3 G/DL (6.4-8.3)
[2018-02-11 09:01] LABS: Barbiturates Screen,Urine Negative (Negative); Benzodiazepines Screen,Urine Negative (Negative); Cannabinoid Screen,Urine Negative (Negative); Opiate Screen,Urine Negative (Negative); Phencyclidine Screen,Urine Negative (Negative)
[2018-02-11] MEDS ORDERED: ONDANSETRON 4 MG/2 ML VIAL IV PRN (10:27)
[2018-02-11] MEDS ORDERED: ACETAMINOPHEN 325 MG TABLET PO PRN ×2 (10:27→21:47)
[2018-02-11] MEDS: SODIUM CHLORIDE 0.9% 1,000 ML IV SCH ×2 (10:33→21:07)
[2018-02-11] MEDS: amLODIPine 5 MG TABLET PO SCH (18:52)
[2018-02-11] MEDS: cefTRIAXone 1,000 MG in SYRINGE 1 EACH IV SCH (18:52)
[2018-02-11] MEDS ORDERED: PRAVASTATIN 20 MG TABLET PO SCH (21:00)
[2018-02-11] MEDS: ALBUTEROL/IPRATROPIUM 3 ML NEB RESP TX SCH (21:00)
[2018-02-11] MEDS: ASPIRIN EC 81 MG TABLET PO SCH (21:08)
[2018-02-11] MEDS: hydrALAZINE 10 MG TABLET PO SCH (21:08)
[2018-02-11] MEDS: DOCUSATE SODIUM 100 MG CAPSULE PO SCH (21:10)
[2018-02-11] MEDS ORDERED: SKIN HEALING OINT (AQUAPHOR) 50 GM TUBE TOP PRN (21:46)
[2018-02-11] MEDS: ATORVASTATIN 40 MG TABLET PO SCH (22:03)
[2018-02-11] MEDS ORDERED: DEXTROSE 50% 25 GM/50 ML VIAL IV PRN (22:09)
[2018-02-11] MEDS ORDERED: GLUCAGON 1 MG VIAL IM PRN (22:09)
[2018-02-11] MEDS: FUROSEMIDE 20 MG TABLET PO SCH (22:58)
[2018-02-11] MEDS: CARVEDILOL 3.125 MG TABLET PO SCH (22:58)
[2018-02-11] MEDS: methylPREDNISolone SOD SUC 40 MG/1 ML VIAL IV SCH (23:03)
[2018-02-11] MEDS: TAMSULOSIN 0.4 MG CAPSULE PO SCH (23:03)
[2018-02-11] MEDS: AZITHROMYCIN INJ 500 MG in SODIUM CHLORIDE 0.9% 250 ML IV SCH (23:03)
[2018-02-12] MEDS: ALBUTEROL/IPRATROPIUM 3 ML NEB RESP TX SCH ×4 (00:22→20:02)
[2018-02-12 04:02] LABS: Basophils % 0.3 % (0.0-0.8); Eosinophils % 0.3 % (0.00-10.9); Hematocrit 40.3 VOL% (42.0-52.0); Hemoglobin 13.7 GM/DL (14.0-18.0); Immature Granulocytes % 0.4 %; Immature Granulocytes Absolute 0.03 #; Lymphocytes # 0.7 10*3/uL (1.4-4.0); Lymphocytes % 9.8 % (21.2-54.2); Mean Corpuscular Hemoglobin 30 PG (27-34); Mean Corpuscular Volume 87.6 FL (87-102); Mean Platelet Volume 12.8 FL (9.6-12.0); Monocytes # 0.3 10*3/uL (0.11-0.8); Monocytes % 4.4 % (1.7-12.7); Neutrophils # 6.2 10*3/uL (1.4-7.4); Neutrophils % 84.8 % (38.7-73.9); Platelet Count 118 T/CUMM (130-400); Red Cell Distribution Width 13.2 % (9.3-17.3); White Blood Count 7.3 T/CUMM (4-12)
[2018-02-12 04:24] LABS: Risk Ratio 2.67; VLDL CHOLESTEROL 22.4 MG/DL
[2018-02-12 04:27] LABS: Calcium 8.6 MG/DL (8.5-10.1); Osmolality,Calculated 279.4 MOS/KG (273-304); Potassium 3.3 MMOL/L (3.5-5.1); Thyroid Stimulating Hormone 1.28 uIU/ml (0.358-3.74)
[2018-02-12] MEDS: hydrALAZINE 10 MG TABLET PO SCH ×3 (05:34→21:10)
[2018-02-12] MEDS: SODIUM CHLORIDE 0.9% 1,000 ML IV SCH ×3 (05:46→21:11)
[2018-02-12] MEDS: INSULIN REGULAR 100 UNIT/ML SUBCUT SCH ×2 (08:10→17:27)
[2018-02-12] MEDS: FAMOTIDINE 20 MG TABLET PO SCH (08:16)
[2018-02-12] MEDS: CARVEDILOL 3.125 MG TABLET PO SCH ×2 (08:16→17:26)
[2018-02-12] MEDS: amLODIPine 5 MG TABLET PO SCH (08:16)
[2018-02-12] MEDS: ASPIRIN EC 81 MG TABLET PO SCH ×2 (08:16→21:10)
[2018-02-12] MEDS: LINACLOTIDE 145 MCG CAPSULE PO SCH (08:16)
[2018-02-12] MEDS: DOCUSATE SODIUM 100 MG CAPSULE PO SCH ×2 (08:16→21:10)
[2018-02-12] MEDS ORDERED: PANTOPRAZOLE 40 MG TABLET PO SCH (09:00)
[2018-02-12] MEDS: methylPREDNISolone SOD SUC 40 MG/1 ML VIAL IV SCH ×2 (09:09→21:10)
[2018-02-12] MEDS: cefTRIAXone 1,000 MG in SYRINGE 1 EACH IV SCH (17:42)
[2018-02-12] MEDS: TAMSULOSIN 0.4 MG CAPSULE PO SCH (21:10)
[2018-02-12] MEDS: ATORVASTATIN 40 MG TABLET PO SCH (21:10)
[2018-02-12] MEDS: FUROSEMIDE 20 MG TABLET PO SCH (21:11)
[2018-02-12] MEDS: AZITHROMYCIN INJ 500 MG in SODIUM CHLORIDE 0.9% 250 ML IV SCH (21:19)
[2018-02-13] MEDS: ALBUTEROL/IPRATROPIUM 3 ML NEB RESP TX SCH ×4 (00:30→19:38)
[2018-02-13] MEDS: hydrALAZINE 10 MG TABLET PO SCH ×3 (05:32→21:01)
[2018-02-13] MEDS ORDERED: POTASSIUM CHLORIDE 20 MEQ TABLET PO ONE (06:30)
[2018-02-13] MEDS ORDERED: CYANOCOBALAMIN 1000 MCG/1 ML VIAL IM ONE (06:30)
[2018-02-13 07:45] LABS: Basophils % 0.1 % (0.0-0.8); Hematocrit 37.6 VOL% (42.0-52.0); Hemoglobin 12.7 GM/DL (14.0-18.0); Immature Granulocytes % 0.5 %; Immature Granulocytes Absolute 0.05 #; Lymphocytes # 0.9 10*3/uL (1.4-4.0); Lymphocytes % 8.8 % (21.2-54.2); Mean Corpuscular HGB Conc 33.8 GM/DL (32-36); Mean Corpuscular Hemoglobin 30 PG (27-34); Mean Corpuscular Volume 88.1 FL (87-102); Mean Platelet Volume 12.4 FL (9.6-12.0); Monocytes # 0.6 10*3/uL (0.11-0.8); Monocytes % 6.2 % (1.7-12.7); Neutrophils # 8.7 10*3/uL (1.4-7.4); Neutrophils % 84.4 % (38.7-73.9); Platelet Count 112 T/CUMM (130-400); Red Blood Count 4.27 MC/CUMM (3.8-5.5); Red Cell Distribution Width 13.2 % (9.3-17.3); White Blood Count 10.2 T/CUMM (4-12)
[2018-02-13 08:13] LABS: Calcium 8.4 MG/DL (8.5-10.1); Potassium 3.9 MMOL/L (3.5-5.1)
[2018-02-13] MEDS ORDERED: hydrALAZINE 25 MG TABLET PO PRN (09:24)
[2018-02-13] MEDS ORDERED: hydrALAZINE 25 MG TABLET PO ONE (09:27)
[2018-02-13] MEDS: SODIUM CHLORIDE 0.9% 1,000 ML IV SCH ×3 (09:33→17:57)
[2018-02-13] MEDS: methylPREDNISolone SOD SUC 40 MG/1 ML VIAL IV SCH ×2 (09:34→21:01)
[2018-02-13] MEDS: RIVAROXABAN 20 MG TABLET PO SCH (09:34)
[2018-02-13] MEDS: ASPIRIN EC 81 MG TABLET PO SCH ×2 (09:34→20:30)
[2018-02-13] MEDS: POTASSIUM CHLORIDE 20 MEQ TABLET PO SCH ×2 (09:34→20:30)
[2018-02-13] MEDS: amLODIPine 5 MG TABLET PO SCH (09:34)
[2018-02-13] MEDS: CARVEDILOL 3.125 MG TABLET PO SCH ×2 (09:34→16:55)
[2018-02-13] MEDS: INSULIN REGULAR 100 UNIT/ML SUBCUT SCH ×2 (09:35→17:05)
[2018-02-13] MEDS: FAMOTIDINE 20 MG TABLET PO SCH (09:35)
[2018-02-13] MEDS: DOCUSATE SODIUM 100 MG CAPSULE PO SCH ×2 (09:35→20:30)
[2018-02-13] MEDS: LINACLOTIDE 145 MCG CAPSULE PO SCH (09:36)
[2018-02-13] MEDS: cefTRIAXone 1,000 MG in SYRINGE 1 EACH IV SCH ×2 (17:05→17:57)
[2018-02-13] MEDS: FUROSEMIDE 20 MG TABLET PO SCH (20:30)
[2018-02-13] MEDS: ATORVASTATIN 40 MG TABLET PO SCH (20:30)
[2018-02-13] MEDS: TAMSULOSIN 0.4 MG CAPSULE PO SCH (20:30)
[2018-02-13] MEDS: AZITHROMYCIN INJ 500 MG in SODIUM CHLORIDE 0.9% 250 ML IV SCH (21:02)
[2018-02-14] MEDS: ALBUTEROL/IPRATROPIUM 3 ML NEB RESP TX SCH ×4 (00:40→19:38)
[2018-02-14 05:44] LABS: Calcium 8.4 MG/DL (8.5-10.1); Osmolality,Calculated 283.3 MOS/KG (273-304); Potassium 3.8 MMOL/L (3.5-5.1)
[2018-02-14] MEDS: hydrALAZINE 10 MG TABLET PO SCH ×3 (06:22→21:29)
[2018-02-14] MEDS: INSULIN REGULAR 100 UNIT/ML SUBCUT SCH ×2 (07:50→16:40)
[2018-02-14] MEDS: FAMOTIDINE 20 MG TABLET PO SCH (08:56)
[2018-02-14] MEDS: DOCUSATE SODIUM 100 MG CAPSULE PO SCH ×2 (08:56→21:33)
[2018-02-14] MEDS: CYANOCOBALAMIN 500 MCG TABLET PO SCH (08:56)
[2018-02-14] MEDS: POTASSIUM CHLORIDE 20 MEQ TABLET PO SCH ×2 (08:56→21:30)
[2018-02-14] MEDS: RIVAROXABAN 20 MG TABLET PO SCH (08:56)
[2018-02-14] MEDS: ASPIRIN EC 81 MG TABLET PO SCH (08:56)
[2018-02-14] MEDS: amLODIPine 5 MG TABLET PO SCH (08:56)
[2018-02-14] MEDS: LINACLOTIDE 145 MCG CAPSULE PO SCH (08:57)
[2018-02-14] MEDS: CARVEDILOL 3.125 MG TABLET PO SCH ×2 (08:59→17:55)
[2018-02-14] MEDS: methylPREDNISolone SOD SUC 40 MG/1 ML VIAL IV SCH ×2 (08:59→21:31)
[2018-02-14] MEDS: SODIUM CHLORIDE 0.9% 1,000 ML IV SCH (15:09)
[2018-02-14 15:36] LABS: Apearance,Urine Slightly Hazy (Clear); Bilirubin,Urine Negative (Negative); Blood, Urine Large mg/dL (Negative); Glucose,Urine (UA) 50 mg/dL (Negative); Ketones,Urine Negative (Negative); Nitrite,Urine Negative (Negative); Protein,Urine Negative; RBC,Urine 2407 /HPF (0-4); Squamous Epithelial Cell,Urine Occasional /HPF (0-10); Urine Color Red (Yellow); Urine Specific Gravity 1.005 (1.001-1.035); Urine Urobilinogen < 2.0 EU/DL (0.2-1.0); WBC,Urine 13 /HPF (0-6)
[2018-02-14] MEDS: cefTRIAXone 1,000 MG in SYRINGE 1 EACH IV SCH (17:55)
[2018-02-14 19:32] LABS: Basophils % 0.2 % (0.0-0.8); Eosinophils % 0.1 % (0.00-10.9); Hematocrit 41.1 VOL% (42.0-52.0); Hemoglobin 14.1 GM/DL (14.0-18.0); Immature Granulocytes % 1.4 %; Immature Granulocytes Absolute 0.12 #; Lymphocytes % 12.4 % (21.2-54.2); Mean Corpuscular HGB Conc 34.3 GM/DL (32-36); Mean Corpuscular Hemoglobin 30 PG (27-34); Mean Corpuscular Volume 88.4 FL (87-102); Mean Platelet Volume 12.4 FL (9.6-12.0); Monocytes # 0.7 10*3/uL (0.11-0.8); Monocytes % 8.9 % (1.7-12.7); Neutrophils # 6.4 10*3/uL (1.4-7.4); Platelet Count 103 T/CUMM (130-400); Red Blood Count 4.65 MC/CUMM (3.8-5.5); Red Cell Distribution Width 13.6 % (9.3-17.3); White Blood Count 8.3 T/CUMM (4-12)
[2018-02-14] MEDS: FUROSEMIDE 20 MG TABLET PO SCH (21:30)
[2018-02-14] MEDS: TAMSULOSIN 0.4 MG CAPSULE PO SCH (21:30)
[2018-02-14] MEDS: ATORVASTATIN 40 MG TABLET PO SCH (21:30)
[2018-02-14] MEDS: AZITHROMYCIN INJ 500 MG in SODIUM CHLORIDE 0.9% 250 ML IV SCH (21:31)
[2018-02-15] MEDS: ALBUTEROL/IPRATROPIUM 3 ML NEB RESP TX SCH ×3 (00:30→13:50)
[2018-02-15] MEDS: hydrALAZINE 10 MG TABLET PO SCH ×2 (05:00→14:50)
[2018-02-15] MEDS: SODIUM CHLORIDE 0.9% 1,000 ML IV SCH ×2 (05:32→14:51)
[2018-02-15 06:24] LABS: Basophils % 0.1 % (0.0-0.8); Hematocrit 38.6 VOL% (42.0-52.0); Hemoglobin 13.2 GM/DL (14.0-18.0); Immature Granulocytes % 1.1 %; Immature Granulocytes Absolute 0.08 #; Lymphocytes # 0.9 10*3/uL (1.4-4.0); Lymphocytes % 12.5 % (21.2-54.2); Mean Corpuscular HGB Conc 34.2 GM/DL (32-36); Mean Corpuscular Hemoglobin 29 PG (27-34); Mean Corpuscular Volume 85.6 FL (87-102); Mean Platelet Volume 11.9 FL (9.6-12.0); Monocytes # 0.5 10*3/uL (0.11-0.8); Monocytes % 6.4 % (1.7-12.7); Neutrophils # 5.7 10*3/uL (1.4-7.4); Neutrophils % 79.9 % (38.7-73.9); Platelet Count 131 T/CUMM (130-400); Red Blood Count 4.51 MC/CUMM (3.8-5.5); Red Cell Distribution Width 13.5 % (9.3-17.3); White Blood Count 7.1 T/CUMM (4-12)
[2018-02-15 06:36] LABS: Calcium 8.5 MG/DL (8.5-10.1); Osmolality,Calculated 285.1 MOS/KG (273-304); Potassium 4.1 MMOL/L (3.5-5.1)
[2018-02-15] MEDS: POTASSIUM CHLORIDE 20 MEQ TABLET PO SCH (08:27)
[2018-02-15] MEDS: LINACLOTIDE 145 MCG CAPSULE PO SCH (08:27)
[2018-02-15] MEDS: amLODIPine 5 MG TABLET PO SCH (08:27)
[2018-02-15] MEDS: CYANOCOBALAMIN 500 MCG TABLET PO SCH (08:27)
[2018-02-15] MEDS: DOCUSATE SODIUM 100 MG CAPSULE PO SCH (08:27)
[2018-02-15] MEDS: FAMOTIDINE 20 MG TABLET PO SCH (08:27)
[2018-02-15] MEDS: CARVEDILOL 3.125 MG TABLET PO SCH (08:27)
[2018-02-15] MEDS ORDERED: DUTASTERIDE 0.5 MG CAPSULE PO SCH (09:00)
[2018-02-15] MEDS: INSULIN REGULAR 100 UNIT/ML SUBCUT SCH (10:16)
[2018-02-15] MEDS: methylPREDNISolone SOD SUC 40 MG/1 ML VIAL IV SCH (10:20)
[2018-02-15 11:56] VITALS: BP 167/79
[2018-02-15] MEDS ORDERED: TUBERCULIN SKIN TEST 0.1 ML SYRINGE INTRADERM ONE (12:34)
[2018-02-15] MEDS ORDERED: ASPIRIN CHEW 81 MG TABLET PO SCH (21:00)
== END 2018-02-15 14:50 | DRG 66 ==
LOC: N.ED 07:11 → N.EDINP 09:26 → N.TELEN 13:45
PROVIDERS: ADMIT Internal Medicine; ATTEND Internal Medicine

== ENCOUNTER 2020-09-01 05:49 | Inpatient (IN) ==
[2020-09-01] MEDS ORDERED: ASPIRIN 325 MG TABLET PO ONE (06:00)
[2020-09-01] MEDS ORDERED: diphenhydrAMINE CAP 50 MG CAPSULE PO ONE (06:00)
[2020-09-01] MEDS ORDERED: POTASSIUM CHLORIDE RIDER 10 MEQ in PREMIX 1 EACH IV PRN (06:00)
[2020-09-01] MEDS ORDERED: MAGNESIUM SULF RIDER 2 GM in PREMIX 1 EACH IV PRN (06:00)
[2020-09-01] MEDS ORDERED: DIAZEPAM 5 MG TABLET PO ONE (06:00)
[2020-09-01] MEDS ORDERED: LIDOCAINE 1% 20 ML VIAL ONE (06:42)
[2020-09-01] MEDS ORDERED: NITROGLYCERIN DRIP 50 MG/250 ML BOTTLE IV ONE (07:02)
[2020-09-01] MEDS ORDERED: VERAPAMIL 5 MG/2 ML VIAL ONE ×4 (07:02→09:07)
[2020-09-01] MEDS ORDERED: diphenhydrAMINE CAP 50 MG CAPSULE ONE (07:08)
[2020-09-01] MEDS ORDERED: DIAZEPAM 5 MG TABLET ONE (07:08)
[2020-09-01] MEDS ORDERED: ASPIRIN EC 325 MG TABLET PO ONE (07:08)
[2020-09-01 07:10] LABS: Basophils % 0.2 % (0.0-0.8); Eosinophils # 0.2 10*3/uL (0.0-0.87); Eosinophils % 2.5 % (0.00-10.9); Hematocrit 39.8 VOL% (42.0-52.0); Hemoglobin 12.3 GM/DL (14.0-18.0); Immature Granulocytes % 0.5 %; Immature Granulocytes Absolute 0.04 #; Lymphocytes # 1.7 10*3/uL (1.4-4.0); Lymphocytes % 19.9 % (21.2-54.2); Mean Corpuscular HGB Conc 30.9 GM/DL (32-36); Mean Corpuscular Volume 90.9 FL (87-102); Neutrophils % 67.9 % (38.7-73.9); Platelet Count 136 T/CUMM (130-400); Red Blood Count 4.38 MC/CUMM (3.8-5.5); Red Cell Distribution Width 14.8 % (9.3-17.3); White Blood Count 8.4 T/CUMM (4-12)
[2020-09-01 07:11] LABS: INR 1.1; PT Patient Result 12.1 SECS (9.8-11.9)
[2020-09-01] MEDS: SODIUM CHLORIDE 0.9% 1,000 ML IV SCH ×3 (07:12→20:00)
[2020-09-01 07:19] LABS: Albumin 3.9 G/DL (3.4-5.0); Bilirubin,Total 1.1 MG/DL (0.2-1.0); Calcium 9.1 MG/DL (8.5-10.1); Osmolality,Calculated 277.5 MOS/KG (273-304); Potassium 3.8 MMOL/L (3.5-5.1); Total Protein 7.6 G/DL (6.4-8.3)
[2020-09-01] MEDS ORDERED: MIDAZOLAM 2 MG/2 ML VIAL ONE (07:30)
[2020-09-01] MEDS ORDERED: HYDROmorphone 2 MG/1 ML VIAL ONE ×2 (07:30→08:58)
[2020-09-01] MEDS ORDERED: ENOXAPARIN 60 MG/0.6 ML SYRINGE ONE (08:19)
[2020-09-01] MEDS ORDERED: FUROSEMIDE 40 MG/4 ML VIAL IV ONE (12:04)
[2020-09-01] MEDS ORDERED: ALBUTEROL/IPRATROPIUM 3 ML NEB RESP TX ONE (12:04)
[2020-09-01 13:33] LABS: Bilirubin,Urine Negative (Negative); Blood, Urine Moderate mg/dL (Negative); Glucose,Urine (UA) Negative (Negative); Ketones,Urine 20 mg/dL (Negative); Mucus,Urine Occasional /LPF (Occasional); Nitrite,Urine Negative (Negative); Protein,Urine 30 MG/DL; RBC,Urine 45 /HPF (0-4); Squamous Epithelial Cell,Urine Occasional /HPF (0-10); Urine Appearance CLEAR (Clear); Urine Color Yellow (Yellow); Urine Specific Gravity 1.049 (1.001-1.035); Urine Urobilinogen < 2.0 EU/DL (0.2-1.0); WBC,Urine 1 /HPF (0-6)
[2020-09-01] MEDS ORDERED: carvediloL 3.125 MG TABLET PO SCH (21:00)
[2020-09-02] MEDS: SODIUM CHLORIDE 0.9% 1,000 ML IV SCH ×2 (00:20→08:03)
[2020-09-02 06:46] LABS: Basophils % 0.3 % (0.0-0.8); Eosinophils # 0.2 10*3/uL (0.0-0.87); Eosinophils % 3.6 % (0.00-10.9); Hematocrit 37.3 VOL% (42.0-52.0); Hemoglobin 12.1 GM/DL (14.0-18.0); Immature Granulocytes % 0.5 %; Immature Granulocytes Absolute 0.03 #; Lymphocytes % 29.5 % (21.2-54.2); Mean Corpuscular HGB Conc 32.4 GM/DL (32-36); Mean Corpuscular Volume 88.6 FL (87-102); Mean Platelet Volume 12.6 FL (9.6-12.0); Monocytes % 13.9 % (1.7-12.7); Neutrophils % 52.2 % (38.7-73.9); Platelet Count 123 T/CUMM (130-400); Red Blood Count 4.21 MC/CUMM (3.8-5.5); Red Cell Distribution Width 15.1 % (9.3-17.3); White Blood Count 6.6 T/CUMM (4-12)
[2020-09-02 07:09] LABS: Calcium 8.6 MG/DL (8.5-10.1); Osmolality,Calculated 278.4 MOS/KG (273-304); Potassium 3.7 MMOL/L (3.5-5.1)
[2020-09-02] MEDS: FUROSEMIDE 20 MG TABLET PO SCH (08:22)
[2020-09-02] MEDS: CYANOCOBALAMIN 500 MCG TABLET PO SCH (08:22)
[2020-09-02] MEDS: amLODIPine 5 MG TABLET PO SCH (08:23)
[2020-09-02] MEDS: DUTASTERIDE 0.5 MG CAPSULE PO SCH (08:23)
[2020-09-02] MEDS: LEVOTHYROXINE 25 MCG TABLET PO SCH (08:23)
[2020-09-02] MEDS: OLMESARTAN 20 MG TABLET PO SCH (08:23)
[2020-09-02] MEDS: ASPIRIN CHEW 81 MG TABLET PO SCH (08:23)
[2020-09-02] MEDS: ROSUVASTATIN 20 MG TABLET PO SCH (08:23)
[2020-09-02] MEDS: MULTIVITAMIN (CENTRUM) TABLET PO SCH (08:24)
[2020-09-02] MEDS: GABAPENTIN 300 MG CAPSULE PO SCH ×2 (08:28→20:43)
[2020-09-02] MEDS: hydrALAZINE 25 MG TABLET PO SCH ×2 (08:28→20:43)
[2020-09-02] MEDS: carvediloL 3.125 MG TABLET PO SCH (08:57)
[2020-09-02] MEDS ORDERED: RIVAROXABAN 15 MG TABLET PO SCH (09:00)
[2020-09-02] MEDS ORDERED: carvediloL 6.25 MG TABLET PO SCH (09:00)
[2020-09-02] MEDS: TAMSULOSIN 0.4 MG CAPSULE PO SCH (20:43)
[2020-09-03] MEDS ORDERED: ceFAZolin 1,000 MG in SYRINGE 1 EACH IV ONE (07:07)
[2020-09-03] MEDS ORDERED: diphenhydrAMINE CAP 25 MG CAPSULE PO ONE (07:07)
[2020-09-03] MEDS ORDERED: ceFAZolin 1,000 MG VIAL IRRIG ONE (07:07)
[2020-09-03] MEDS ORDERED: DIAZEPAM 5 MG TABLET PO ONE (07:07)
[2020-09-03] MEDS ORDERED: LIDOCAINE 1% 20 ML VIAL ONE (12:46)
[2020-09-03] MEDS ORDERED: HEPARIN/NACL 0.9% 2 UNITS/ML 500 ML IV ONE (12:46)
[2020-09-03] MEDS ORDERED: ceFAZolin 1,000 MG VIAL ONE (12:50)
[2020-09-03] MEDS ORDERED: MIDAZOLAM 2 MG/2 ML VIAL ONE (12:59)
[2020-09-03] MEDS ORDERED: fentaNYL 100 MCG/2 ML VIAL ONE (12:59)
[2020-09-03] MEDS ORDERED: HEPARIN 5,000 UNIT/1 ML VIAL ONE (13:10)
[2020-09-03] MEDS ORDERED: DEXTROSE 50% 25 GM/50 ML VIAL IV PRN (13:39)
[2020-09-03] MEDS ORDERED: GLUCAGON 1 MG VIAL IM PRN (13:39)
[2020-09-03] MEDS: ROSUVASTATIN 20 MG TABLET PO SCH (16:39)
[2020-09-03] MEDS: hydrALAZINE 25 MG TABLET PO SCH ×2 (16:39→21:44)
[2020-09-03] MEDS: ISOSORBIDE MONONITRATE 30 MG TABLET PO SCH (16:40)
[2020-09-03] MEDS: DUTASTERIDE 0.5 MG CAPSULE PO SCH (16:40)
[2020-09-03] MEDS: OLMESARTAN 20 MG TABLET PO SCH (16:40)
[2020-09-03] MEDS: LEVOTHYROXINE 25 MCG TABLET PO SCH (16:40)
[2020-09-03] MEDS: amLODIPine 5 MG TABLET PO SCH (16:40)
[2020-09-03] MEDS: CYANOCOBALAMIN 500 MCG TABLET PO SCH (16:40)
[2020-09-03] MEDS: ASPIRIN CHEW 81 MG TABLET PO SCH (16:40)
[2020-09-03] MEDS: FUROSEMIDE 20 MG TABLET PO SCH (16:40)
[2020-09-03] MEDS: MULTIVITAMIN (CENTRUM) TABLET PO SCH (16:40)
[2020-09-03] MEDS: GABAPENTIN 300 MG CAPSULE PO SCH ×2 (16:41→21:44)
[2020-09-03] MEDS: INSULIN REGULAR 100 UNIT/ML SUBCUT SCH ×2 (17:23→21:45)
[2020-09-03] MEDS: TAMSULOSIN 0.4 MG CAPSULE PO SCH (21:44)
[2020-09-04 05:53] LABS: Basophils % 0.3 % (0.0-0.8); Eosinophils # 0.3 10*3/uL (0.0-0.87); Hematocrit 37.4 VOL% (42.0-52.0); Hemoglobin 11.8 GM/DL (14.0-18.0); Immature Granulocytes % 0.3 %; Immature Granulocytes Absolute 0.02 #; Lymphocytes # 1.8 10*3/uL (1.4-4.0); Lymphocytes % 30.2 % (21.2-54.2); Mean Corpuscular HGB Conc 31.6 GM/DL (32-36); Mean Corpuscular Volume 90.8 FL (87-102); Mean Platelet Volume 12.1 FL (9.6-12.0); Monocytes % 13.3 % (1.7-12.7); Neutrophils % 50.9 % (38.7-73.9); Platelet Count 122 T/CUMM (130-400); Red Blood Count 4.12 MC/CUMM (3.8-5.5); Red Cell Distribution Width 15.1 % (9.3-17.3)
[2020-09-04 06:17] LABS: Calcium 8.5 MG/DL (8.5-10.1); Osmolality,Calculated 278.4 MOS/KG (273-304); Potassium 3.5 MMOL/L (3.5-5.1)
[2020-09-04 06:18] LABS: Calcium 8.5 MG/DL (8.5-10.1); Osmolality,Calculated 280.3 MOS/KG (273-304); Potassium 3.5 MMOL/L (3.5-5.1)
[2020-09-04 08:07] VITALS: BP 138/69
[2020-09-04] MEDS: hydrALAZINE 25 MG TABLET PO SCH (08:41)
[2020-09-04] MEDS: OLMESARTAN 20 MG TABLET PO SCH (08:41)
[2020-09-04] MEDS: ROSUVASTATIN 20 MG TABLET PO SCH (08:41)
[2020-09-04] MEDS: ISOSORBIDE MONONITRATE 30 MG TABLET PO SCH (08:41)
[2020-09-04] MEDS: FUROSEMIDE 20 MG TABLET PO SCH (08:41)
[2020-09-04] MEDS: CYANOCOBALAMIN 500 MCG TABLET PO SCH (08:42)
[2020-09-04] MEDS: DUTASTERIDE 0.5 MG CAPSULE PO SCH (08:42)
[2020-09-04] MEDS: ASPIRIN CHEW 81 MG TABLET PO SCH (08:42)
[2020-09-04] MEDS: LEVOTHYROXINE 25 MCG TABLET PO SCH (08:42)
[2020-09-04] MEDS: amLODIPine 5 MG TABLET PO SCH (08:42)
[2020-09-04] MEDS: GABAPENTIN 300 MG CAPSULE PO SCH (08:42)
[2020-09-04] MEDS: MULTIVITAMIN (CENTRUM) TABLET PO SCH (08:43)
[2020-09-04] MEDS: INSULIN REGULAR 100 UNIT/ML SUBCUT SCH (09:10)
[2020-09-04] MEDS: carvediloL 3.125 MG TABLET PO SCH ×2 (09:13→10:12)
== END 2020-09-04 11:20 | disposition home health service (06) | DRG 229 ==
LOC: N.CL 05:49 → N.TELEN 05:49 → N.CL 05:51 → N.TELEN 15:38
PROVIDERS: ADMIT Internal Medicine Cardiovascular Disease; ATTEND Internal Medicine Cardiovascular Disease
PROC: CLMICRA (2020-09-03 13:15)

== ENCOUNTER 2022-03-10 21:03 | Inpatient (IN) ==
[2022-03-10 22:22] LABS: Basophils # 0.1 10*3/uL (0.0-0.2); Basophils % 0.5 % (0.0-0.8); Eosinophils % 0.2 % (0.00-10.9); Hematocrit 38.8 VOL% (42.0-52.0); Hemoglobin 12.3 GM/DL (14.0-18.0); Immature Granulocytes % 1.5 %; Immature Granulocytes Absolute 0.14 #; Lymphocytes # 1.4 10*3/uL (1.4-4.0); Lymphocytes % 15.2 % (21.2-54.2); Mean Corpuscular HGB Conc 31.7 GM/DL (32-36); Mean Corpuscular Volume 90.9 FL (87-102); Monocytes # 0.7 10*3/uL (0.11-0.8); Monocytes % 7.5 % (1.7-12.7); Neutrophils % 75.1 % (38.7-73.9); Platelet Count 254 T/CUMM (130-400); Red Blood Count 4.27 MC/CUMM (3.8-5.5); Red Cell Distribution Width 18.7 % (9.3-17.3); White Blood Count 9.3 T/CUMM (4-12)
[2022-03-10] MEDS ORDERED: VANCOMYCIN INJ 1,000 MG in SODIUM CHLORIDE 0.9% 250 ML IV STA ×2 (22:33→22:38)
[2022-03-10 22:56] LABS: Albumin 2.4 G/DL (3.4-5.0); Bilirubin,Total 0.6 MG/DL (0.20-1.00); Calcium 9.7 MG/DL (8.5-10.1); Osmolality,Calculated 271.1 MOS/KG (273-304); Potassium 4.5 MMOL/L (3.5-5.1); Total Protein 7.6 G/DL (6.4-8.2)
[2022-03-10] MEDS ORDERED: SIMETHICONE CHEW 125 MG TABLET PO PRN (23:52)
[2022-03-10] MEDS ORDERED: ACETAMINOPHEN 325 MG TABLET PO PRN (23:52)
[2022-03-10] MEDS ORDERED: GLUCAGON 1 MG VIAL IM PRN (23:52)
[2022-03-10] MEDS ORDERED: DEXTROSE 10% 250 ML BAG IV PRN (23:52)
[2022-03-11] MEDS: cefTRIAXone 1,000 MG in SODIUM CHLORIDE 0.9% 100 ML IV SCH (00:55)
[2022-03-11] MEDS: SODIUM CHLORIDE 0.45% 1,000 ML IV SCH ×2 (02:38→22:16)
[2022-03-11] MEDS: LEVOTHYROXINE 25 MCG TABLET PO SCH (05:17)
[2022-03-11 06:10] LABS: Basophils % 0.4 % (0.0-0.8); Eosinophils % 0.4 % (0.00-10.9); Hematocrit 37.1 VOL% (42.0-52.0); Hemoglobin 11.9 GM/DL (14.0-18.0); Immature Granulocytes % 1.2 %; Immature Granulocytes Absolute 0.12 #; Lymphocytes % 20.7 % (21.2-54.2); Mean Corpuscular HGB Conc 32.1 GM/DL (32-36); Mean Corpuscular Volume 89.4 FL (87-102); Monocytes # 0.9 10*3/uL (0.11-0.8); Monocytes % 9.1 % (1.7-12.7); NRBC # 0.02 10*3/uL; Neutrophils % 68.2 % (38.7-73.9); Platelet Count 260 T/CUMM (130-400); Red Blood Count 4.15 MC/CUMM (3.8-5.5); Red Cell Distribution Width 18.2 % (9.3-17.3); White Blood Count 9.8 T/CUMM (4-12)
[2022-03-11 06:27] LABS: Calcium 9.6 MG/DL (8.5-10.1); Osmolality,Calculated 274.8 MOS/KG (273-304); Potassium 4.2 MMOL/L (3.5-5.1)
[2022-03-11 06:35] LABS: INR 1.2; PT Patient Result 12.6 SECS (10.1-12.1)
[2022-03-11 07:55] LABS: Platelet Estimate Normal
[2022-03-11 08:05] LABS: Partial Thromboplastin Time 30.9 SECS (23.7-32.9)
[2022-03-11] MEDS: GABAPENTIN 300 MG CAPSULE PO SCH ×2 (10:17→21:02)
[2022-03-11] MEDS: DOCUSATE SODIUM 100 MG CAPSULE PO SCH ×2 (10:17→21:12)
[2022-03-11] MEDS: MULTIVITAMIN (CENTRUM) TABLET PO SCH (10:17)
[2022-03-11] MEDS: MULTIVITAMIN (BEROCCA) TABLET PO SCH (10:17)
[2022-03-11] MEDS: hydrALAZINE 25 MG TABLET PO SCH ×2 (10:17→21:59)
[2022-03-11] MEDS: PANTOPRAZOLE 40 MG TABLET PO SCH (10:17)
[2022-03-11] MEDS: ENOXAPARIN 40 MG/0.4 ML SYRINGE SUBCUT SCH (10:18)
[2022-03-11] MEDS ORDERED: GLUCAGON 1 MG VIAL IM PRN (10:33)
[2022-03-11] MEDS ORDERED: DEXTROSE 50% 25 GM/50 ML VIAL IV PRN (10:33)
[2022-03-11] MEDS: VANCOMYCIN INJ 1,000 MG in SODIUM CHLORIDE 0.9% 250 ML IV SCH (19:21)
[2022-03-11] MEDS: amLODIPine 5 MG TABLET PO SCH (21:02)
[2022-03-11] MEDS: TAMSULOSIN 0.4 MG CAPSULE PO SCH (21:02)
[2022-03-11] MEDS: OLMESARTAN 20 MG TABLET PO SCH (21:02)
[2022-03-11] MEDS: DUTASTERIDE 0.5 MG CAPSULE PO SCH (21:02)
[2022-03-11] MEDS: ROSUVASTATIN 20 MG TABLET PO SCH (21:03)
[2022-03-12] MEDS: cefTRIAXone 1,000 MG in SODIUM CHLORIDE 0.9% 100 ML IV SCH (01:11)
[2022-03-12] MEDS: LEVOTHYROXINE 25 MCG TABLET PO SCH (05:38)
[2022-03-12 06:50] LABS: Basophils # 0.1 10*3/uL (0.0-0.2); Basophils % 0.5 % (0.0-0.8); Eosinophils # 0.1 10*3/uL (0.0-0.87); Eosinophils % 1.2 % (0.00-10.9); Hemoglobin 11.9 GM/DL (14.0-18.0); Immature Granulocytes % 1.5 %; Immature Granulocytes Absolute 0.15 #; Lymphocytes # 1.9 10*3/uL (1.4-4.0); Lymphocytes % 19.7 % (21.2-54.2); Mean Corpuscular HGB Conc 31.3 GM/DL (32-36); Mean Corpuscular Volume 90.3 FL (87-102); Mean Platelet Volume 11.2 FL (9.6-12.0); Monocytes # 0.7 10*3/uL (0.11-0.8); Monocytes % 6.7 % (1.7-12.7); Neutrophils % 70.4 % (38.7-73.9); Platelet Count 276 T/CUMM (130-400); Red Blood Count 4.21 MC/CUMM (3.8-5.5); Red Cell Distribution Width 18.5 % (9.3-17.3); White Blood Count 9.8 T/CUMM (4-12)
[2022-03-12 07:16] LABS: Albumin 1.9 G/DL (3.4-5.0); Bilirubin,Total 0.5 MG/DL (0.20-1.00); Calcium 9.5 MG/DL (8.5-10.1); Osmolality,Calculated 268.2 MOS/KG (273-304); Potassium 4.1 MMOL/L (3.5-5.1)
[2022-03-12 07:21] LABS: Folate 7.51 NG/ML (5.38-24.0)
[2022-03-12 07:25] LABS: % Iron Saturation 10.9 % (18-50)
[2022-03-12] MEDS ORDERED: LIDOCAINE 1% 5 ML VIAL ONE (08:49)
[2022-03-12] MEDS ORDERED: FERROUS SULFATE 325 MG TABLET PO SCH (09:00)
[2022-03-12] MEDS ORDERED: KETAMINE 500 MG/10 ML VIAL ONE (09:10)
[2022-03-12] MEDS ORDERED: GLYCOPYRROLATE 0.4 MG/2 ML VIAL ONE (09:10)
[2022-03-12] MEDS ORDERED: ETOMIDATE 40 MG/20 ML VIAL IV ONE (09:10)
[2022-03-12] MEDS: PANTOPRAZOLE 40 MG TABLET PO SCH (09:15)
[2022-03-12] MEDS: ENOXAPARIN 40 MG/0.4 ML SYRINGE SUBCUT SCH ×2 (09:15→11:06)
[2022-03-12] MEDS: MULTIVITAMIN (CENTRUM) TABLET PO SCH (09:15)
[2022-03-12] MEDS: GABAPENTIN 300 MG CAPSULE PO SCH ×2 (09:15→21:27)
[2022-03-12] MEDS: hydrALAZINE 25 MG TABLET PO SCH ×2 (09:15→21:38)
[2022-03-12] MEDS: MULTIVITAMIN (BEROCCA) TABLET PO SCH (09:15)
[2022-03-12] MEDS: DOCUSATE SODIUM 100 MG CAPSULE PO SCH ×2 (09:15→21:27)
[2022-03-12] MEDS ORDERED: propofoL 200 MG/20 ML VIAL IV ONE (09:22)
[2022-03-12] MEDS ORDERED: ONDANSETRON 4 MG/2 ML VIAL IV PRN (10:02)
[2022-03-12] MEDS ORDERED: HYDROmorphone 1 MG/1 ML SYRINGE ONE (10:03)
[2022-03-12] MEDS: MORPHINE 10 MG/1 ML VIAL IV PRN ×2 (10:08→10:22)
[2022-03-12] MEDS ORDERED: GLUCAGON 1 MG VIAL IM PRN (10:59)
[2022-03-12] MEDS ORDERED: DEXTROSE 10% 250 ML BAG IV PRN (11:05)
[2022-03-12] MEDS: SODIUM CHLORIDE 0.45% 1,000 ML IV SCH ×2 (11:07→16:34)
[2022-03-12] MEDS: FERRIC GLUCONATE COMPLEX 125 MG in SODIUM CHLORIDE 0.9% 100 ML IV SCH (11:15)
[2022-03-12] MEDS: VANCOMYCIN INJ 1,000 MG in SODIUM CHLORIDE 0.9% 250 ML IV SCH (12:27)
[2022-03-12] MEDS: ONDANSETRON 4 MG/2 ML VIAL IV PRN ×2 (13:22→18:54)
[2022-03-12] MEDS: ASPIRIN EC 81 MG TABLET PO SCH (13:22)
[2022-03-12] MEDS: MORPHINE 2 MG/1 ML SYRINGE IV PRN ×3 (13:23→21:58)
[2022-03-12] MEDS: carvediloL 3.125 MG TABLET PO SCH (17:53)
[2022-03-12] MEDS: ROSUVASTATIN 20 MG TABLET PO SCH (21:26)
[2022-03-12] MEDS: TAMSULOSIN 0.4 MG CAPSULE PO SCH (21:26)
[2022-03-12] MEDS: DUTASTERIDE 0.5 MG CAPSULE PO SCH (21:26)
[2022-03-12] MEDS: amLODIPine 5 MG TABLET PO SCH (21:38)
[2022-03-12] MEDS: OLMESARTAN 20 MG TABLET PO SCH (21:38)
[2022-03-13] MEDS: cefTRIAXone 1,000 MG in SODIUM CHLORIDE 0.9% 100 ML IV SCH ×2 (01:26→13:35)
[2022-03-13] MEDS: MORPHINE 2 MG/1 ML SYRINGE IV PRN ×3 (03:52→17:09)
[2022-03-13] MEDS: LEVOTHYROXINE 25 MCG TABLET PO SCH (05:22)
[2022-03-13] MEDS: VANCOMYCIN INJ 1,000 MG in SODIUM CHLORIDE 0.9% 250 ML IV SCH (05:45)
[2022-03-13 05:49] LABS: Basophils # 0.1 10*3/uL (0.0-0.2); Basophils % 0.8 % (0.0-0.8); Eosinophils # 0.2 10*3/uL (0.0-0.87); Eosinophils % 2.4 % (0.00-10.9); Hematocrit 36.9 VOL% (42.0-52.0); Hemoglobin 11.5 GM/DL (14.0-18.0); Immature Granulocytes % 2.5 %; Immature Granulocytes Absolute 0.18 #; Lymphocytes # 1.7 10*3/uL (1.4-4.0); Lymphocytes % 24.5 % (21.2-54.2); Mean Corpuscular HGB Conc 31.2 GM/DL (32-36); Mean Corpuscular Volume 91.6 FL (87-102); Mean Platelet Volume 10.9 FL (9.6-12.0); Monocytes # 0.6 10*3/uL (0.11-0.8); Monocytes % 8.2 % (1.7-12.7); Neutrophils % 61.6 % (38.7-73.9); Platelet Count 278 T/CUMM (130-400); Red Blood Count 4.03 MC/CUMM (3.8-5.5); Red Cell Distribution Width 18.4 % (9.3-17.3); White Blood Count 7.1 T/CUMM (4-12)
[2022-03-13 06:07] LABS: Calcium 9.1 MG/DL (8.5-10.1); Osmolality,Calculated 276.7 MOS/KG (273-304); Potassium 3.9 MMOL/L (3.5-5.1)
[2022-03-13] MEDS: ENOXAPARIN 40 MG/0.4 ML SYRINGE SUBCUT SCH ×2 (09:11→10:03)
[2022-03-13] MEDS: FERRIC GLUCONATE COMPLEX 125 MG in SODIUM CHLORIDE 0.9% 100 ML IV SCH (09:22)
[2022-03-13] MEDS: GABAPENTIN 300 MG CAPSULE PO SCH ×2 (10:05→21:22)
[2022-03-13] MEDS: DOCUSATE SODIUM 100 MG CAPSULE PO SCH ×2 (10:05→21:22)
[2022-03-13] MEDS: ASPIRIN EC 81 MG TABLET PO SCH (10:05)
[2022-03-13] MEDS: hydrALAZINE 25 MG TABLET PO SCH ×2 (10:05→21:23)
[2022-03-13] MEDS: PANTOPRAZOLE 40 MG TABLET PO SCH (10:05)
[2022-03-13] MEDS: carvediloL 3.125 MG TABLET PO SCH (10:05)
[2022-03-13] MEDS: MULTIVITAMIN (CENTRUM) TABLET PO SCH (10:05)
[2022-03-13] MEDS: MULTIVITAMIN (BEROCCA) TABLET PO SCH (10:05)
[2022-03-13] MEDS: SODIUM CHLORIDE 0.45% 1,000 ML IV SCH (10:28)
[2022-03-13] MEDS: TAMSULOSIN 0.4 MG CAPSULE PO SCH (21:22)
[2022-03-13] MEDS: OLMESARTAN 20 MG TABLET PO SCH (21:23)
[2022-03-13] MEDS: DUTASTERIDE 0.5 MG CAPSULE PO SCH (21:23)
[2022-03-13] MEDS: amLODIPine 5 MG TABLET PO SCH (21:23)
[2022-03-13] MEDS: ROSUVASTATIN 20 MG TABLET PO SCH (21:23)
[2022-03-14 05:03] LABS: Basophils # 0.1 10*3/uL (0.0-0.2); Basophils % 0.8 % (0.0-0.8); Eosinophils # 0.2 10*3/uL (0.0-0.87); Eosinophils % 2.4 % (0.00-10.9); Hematocrit 33.8 VOL% (42.0-52.0); Hemoglobin 10.6 GM/DL (14.0-18.0); Immature Granulocytes % 2.7 %; Immature Granulocytes Absolute 0.17 #; Lymphocytes # 1.6 10*3/uL (1.4-4.0); Mean Corpuscular HGB Conc 31.4 GM/DL (32-36); Mean Corpuscular Volume 91.6 FL (87-102); Mean Platelet Volume 10.6 FL (9.6-12.0); Monocytes # 0.3 10*3/uL (0.11-0.8); Monocytes % 5.2 % (1.7-12.7); Neutrophils % 63.9 % (38.7-73.9); Platelet Count 305 T/CUMM (130-400); Red Blood Count 3.69 MC/CUMM (3.8-5.5); Red Cell Distribution Width 18.2 % (9.3-17.3); White Blood Count 6.3 T/CUMM (4-12)
[2022-03-14 05:19] LABS: Calcium 8.9 MG/DL (8.5-10.1); Osmolality,Calculated 279.5 MOS/KG (273-304); Potassium 4.1 MMOL/L (3.5-5.1)
[2022-03-14] MEDS: LEVOTHYROXINE 25 MCG TABLET PO SCH (06:07)
[2022-03-14] MEDS: SODIUM CHLORIDE 0.45% 1,000 ML IV SCH ×2 (06:15→17:03)
[2022-03-14] MEDS ORDERED: RIVAROXABAN 20 MG TABLET PO SCH (08:00)
[2022-03-14] MEDS: MORPHINE 2 MG/1 ML SYRINGE IV PRN (10:55)
[2022-03-14] MEDS: FERRIC GLUCONATE COMPLEX 125 MG in SODIUM CHLORIDE 0.9% 100 ML IV SCH (11:02)
[2022-03-14] MEDS: DOCUSATE SODIUM 100 MG CAPSULE PO SCH (11:04)
[2022-03-14] MEDS: PANTOPRAZOLE 40 MG TABLET PO SCH (11:05)
[2022-03-14] MEDS: MULTIVITAMIN (CENTRUM) TABLET PO SCH (11:05)
[2022-03-14] MEDS: GABAPENTIN 300 MG CAPSULE PO SCH (11:05)
[2022-03-14] MEDS: MULTIVITAMIN (BEROCCA) TABLET PO SCH (11:05)
[2022-03-14] MEDS: hydrALAZINE 25 MG TABLET PO SCH (11:05)
[2022-03-14] MEDS: ASPIRIN EC 81 MG TABLET PO SCH (11:06)
[2022-03-14] MEDS: cefTRIAXone 1,000 MG in SODIUM CHLORIDE 0.9% 100 ML IV SCH (14:30)
[2022-03-14 16:29] VITALS: BP 129/50
== END 2022-03-14 16:40 | DRG 617 ==
LOC: N.ED 21:03 → N.EDINP 23:52 → N.5E 03-11 01:31
PROVIDERS: ADMIT Internal Medicine; ATTEND Internal Medicine

== ENCOUNTER 2022-06-25 12:52 | Observation (INO) ==
[2022-06-25 17:26] LABS: Basophils % 0.7 % (0.0-0.8); Eosinophils # 0.1 10*3/uL (0.0-0.87); Hematocrit 36.1 VOL% (42.0-52.0); Hemoglobin 12.1 GM/DL (14.0-18.0); Immature Granulocytes % 1.7 %; Immature Granulocytes Absolute 0.07 #; Lymphocytes # 1.8 10*3/uL (1.4-4.0); Lymphocytes % 45.5 % (21.2-54.2); Mean Corpuscular HGB Conc 33.5 GM/DL (32-36); Mean Corpuscular Volume 104.3 FL (87-102); Monocytes # 0.4 10*3/uL (0.11-0.8); Monocytes % 9.9 % (1.7-12.7); Neutrophils % 40.2 % (38.7-73.9); Platelet Count 137 T/CUMM (130-400); Red Blood Count 3.46 MC/CUMM (3.8-5.5); Red Cell Distribution Width 26.3 % (9.3-17.3)
[2022-06-25 17:37] LABS: INR 1.2; PT Patient Result 13.5 SECS (10.1-12.1); Partial Thromboplastin Time 33.3 SECS (23.7-32.9)
[2022-06-25 17:45] LABS: Anisocytosis 1+; Elliptocytes Few; Hypochromia Slight; Poikilocytosis 1+; Schistocytes 1+
[2022-06-25 17:46] LABS: Burr Cells Few; Platelet Estimate Adequate; Polychromasia Slight; Target Cells Few
[2022-06-25 18:04] LABS: Albumin 3.9 G/DL (3.4-5.0); Bilirubin,Total 0.5 MG/DL (0.20-1.00); Calcium 9.3 MG/DL (8.5-10.1); Osmolality,Calculated 292.6 MOS/KG (273-304); Potassium 5.3 MMOL/L (3.5-5.1); Total Protein 7.2 G/DL (6.4-8.2)
[2022-06-25] MEDS ORDERED: ACETAMINOPHEN 325 MG TABLET PO PRN (20:33)
[2022-06-25] MEDS ORDERED: ONDANSETRON 4 MG/2 ML VIAL IV PRN (20:33)
[2022-06-25] MEDS ORDERED: ALUMINUM/MAGNES/SIMETH MAX STR 30 ML UDCUP PO PRN (20:33)
[2022-06-25] MEDS: DOCUSATE SODIUM 100 MG CAPSULE PO SCH (21:40)
[2022-06-25] MEDS ORDERED: traMADol 50 MG TABLET PO PRN (22:02)
[2022-06-25] MEDS: hydrALAZINE 25 MG TABLET PO SCH (23:45)
[2022-06-25] MEDS: FINASTERIDE 5 MG TABLET PO SCH (23:45)
[2022-06-25] MEDS: GABAPENTIN 300 MG CAPSULE PO SCH (23:45)
[2022-06-25] MEDS: SODIUM CHLORIDE 23.4% CONC INJ 38.5 MEQ in STERILE WATER INJ 1,000 ML IV SCH (23:50)
[2022-06-26 04:27] LABS: Eosinophils # 0.1 10*3/uL (0.0-0.87); Eosinophils % 2.7 % (0.00-10.9); Hematocrit 35.7 VOL% (42.0-52.0); Hemoglobin 11.8 GM/DL (14.0-18.0); Immature Granulocytes Absolute 0.04 #; Lymphocytes # 2.1 10*3/uL (1.4-4.0); Lymphocytes % 51.1 % (21.2-54.2); Mean Corpuscular HGB Conc 33.1 GM/DL (32-36); Mean Corpuscular Volume 103.8 FL (87-102); Mean Platelet Volume 10.9 FL (9.6-12.0); Monocytes # 0.4 10*3/uL (0.11-0.8); Monocytes % 9.2 % (1.7-12.7); NRBC # 0.02 10*3/uL; Platelet Count 130 T/CUMM (130-400); Red Blood Count 3.44 MC/CUMM (3.8-5.5); Red Cell Distribution Width 26.5 % (9.3-17.3)
[2022-06-26 04:34] LABS: INR 1.2
[2022-06-26 04:43] LABS: Calcium 9.2 MG/DL (8.5-10.1); Osmolality,Calculated 287.8 MOS/KG (273-304); Potassium 4.5 MMOL/L (3.5-5.1)
[2022-06-26 04:45] LABS: Eosinophils 3 % (0-10); Lymphocytes 47 % (20-55); Nucleated Red Blood Cells 1 /100 WBC (0-5); Total Cells Counted 100
[2022-06-26 04:46] LABS: Hypochromia Slight; Macrocytosis Slight
[2022-06-26] MEDS: LEVOTHYROXINE 25 MCG TABLET PO SCH (06:50)
[2022-06-26] MEDS ORDERED: SILVER NITRATE STICK 1 EACH TOP ONE ×2 (09:44→10:11)
[2022-06-26] MEDS: LOSARTAN 50 MG TABLET PO SCH (11:28)
[2022-06-26] MEDS: DOCUSATE SODIUM 100 MG CAPSULE PO SCH ×3 (11:28→21:19)
[2022-06-26] MEDS: LEVOFLOXACIN 750 MG TABLET PO SCH (11:28)
[2022-06-26] MEDS: PANTOPRAZOLE 40 MG TABLET PO SCH (11:28)
[2022-06-26] MEDS: RIVAROXABAN 15 MG TABLET PO SCH (11:28)
[2022-06-26] MEDS: GABAPENTIN 300 MG CAPSULE PO SCH ×2 (11:28→21:14)
[2022-06-26] MEDS: TAMSULOSIN 0.4 MG CAPSULE PO SCH (11:28)
[2022-06-26] MEDS: hydrALAZINE 25 MG TABLET PO SCH ×2 (11:28→21:14)
[2022-06-26] MEDS: CLOPIDOGREL 75 MG TABLET PO SCH (11:28)
[2022-06-26] MEDS: MULTIVITAMIN (CENTRUM) TABLET PO SCH (11:28)
[2022-06-26] MEDS: DESITIN 4OZ/NYSTATIN 15 GRAM MIXTURE PASTE TOP SCH ×2 (11:29→21:14)
[2022-06-26] MEDS: SODIUM CHLORIDE 23.4% CONC INJ 38.5 MEQ in STERILE WATER INJ 1,000 ML IV SCH ×2 (11:29→20:42)
[2022-06-26] MEDS: MENTHOL/ZINC OXIDE OINT 71 GM JAR TOP SCH (11:29)
[2022-06-26] MEDS ORDERED: amLODIPine 5 MG TABLET PO SCH (21:00)
[2022-06-26] MEDS ORDERED: ATORVASTATIN 80 MG TABLET PO SCH (21:00)
[2022-06-26] MEDS: FINASTERIDE 5 MG TABLET PO SCH (21:14)
[2022-06-26] MEDS ORDERED: LORazepam 2 MG/1 ML VIAL ONE (23:46)
[2022-06-26] MEDS: LORazepam 2 MG/1 ML VIAL IV PRN (23:50)
[2022-06-27] MEDS ORDERED: HALOPERIDOL 5 MG/ML AMP IM ONE (00:01)
[2022-06-27] MEDS: LORazepam 2 MG/1 ML VIAL IV PRN ×2 (04:07)
[2022-06-27 05:13] LABS: Basophils # 0.1 10*3/uL (0.0-0.2); Basophils % 1.4 % (0.0-0.8); Eosinophils # 0.1 10*3/uL (0.0-0.87); Eosinophils % 1.9 % (0.00-10.9); Hematocrit 35.9 VOL% (42.0-52.0); Hemoglobin 12.1 GM/DL (14.0-18.0); Immature Granulocytes % 1.9 %; Immature Granulocytes Absolute 0.07 #; Lymphocytes # 1.1 10*3/uL (1.4-4.0); Lymphocytes % 28.5 % (21.2-54.2); Mean Corpuscular HGB Conc 33.7 GM/DL (32-36); Mean Corpuscular Volume 104.7 FL (87-102); Mean Platelet Volume 10.9 FL (9.6-12.0); Monocytes # 0.5 10*3/uL (0.11-0.8); Monocytes % 12.2 % (1.7-12.7); NRBC # 0.03 10*3/uL; Neutrophils % 54.1 % (38.7-73.9); Platelet Count 114 T/CUMM (130-400); Red Blood Count 3.43 MC/CUMM (3.8-5.5); Red Cell Distribution Width 26.5 % (9.3-17.3); White Blood Count 3.7 T/CUMM (4-12)
[2022-06-27 05:15] LABS: Calcium 9.4 MG/DL (8.5-10.1); Osmolality,Calculated 283.4 MOS/KG (273-304); Potassium 3.7 MMOL/L (3.5-5.1)
[2022-06-27] MEDS: LEVOTHYROXINE 25 MCG TABLET PO SCH (05:49)
[2022-06-27 07:37] LABS: Free T4 (Free Thyroxine) 0.91 NG/DL (0.76-1.46)
[2022-06-27] MEDS ORDERED: POTASSIUM CHLORIDE 20 MEQ TABLET PO ONE (08:11)
[2022-06-27] MEDS: TAMSULOSIN 0.4 MG CAPSULE PO SCH (08:32)
[2022-06-27] MEDS: DESITIN 4OZ/NYSTATIN 15 GRAM MIXTURE PASTE TOP SCH (08:32)
[2022-06-27] MEDS: MENTHOL/ZINC OXIDE OINT 71 GM JAR TOP SCH (08:32)
[2022-06-27] MEDS: hydrALAZINE 25 MG TABLET PO SCH (08:32)
[2022-06-27] MEDS: LOSARTAN 50 MG TABLET PO SCH (08:32)
[2022-06-27] MEDS: MULTIVITAMIN (CENTRUM) TABLET PO SCH (08:32)
[2022-06-27] MEDS: RIVAROXABAN 15 MG TABLET PO SCH (08:33)
[2022-06-27] MEDS: GABAPENTIN 300 MG CAPSULE PO SCH (08:33)
[2022-06-27] MEDS: LEVOFLOXACIN 750 MG TABLET PO SCH (08:33)
[2022-06-27] MEDS: DOCUSATE SODIUM 100 MG CAPSULE PO SCH (08:33)
[2022-06-27] MEDS: CLOPIDOGREL 75 MG TABLET PO SCH (08:33)
[2022-06-27] MEDS: PANTOPRAZOLE 40 MG TABLET PO SCH (08:33)
[2022-06-27 11:55] VITALS: BP 93/35
[2022-06-27] MEDS: SODIUM CHLORIDE 23.4% CONC INJ 38.5 MEQ in STERILE WATER INJ 1,000 ML IV SCH (12:38)
== END 2022-06-27 15:30 | disposition home health service (06) ==
LOC: N.2E 12:52 → N.ED 12:52 → SUATTDRO 06-26 03:33 → N.2E 06-26 04:00
PROVIDERS: ADMIT Internal Medicine; ATTEND Internal Medicine